=== PATIENT | female | born 1960 | race Caucasian/White ===

== ENCOUNTER → 2017-03-07 | Day surgery (SDC) | payer BC ==
[~2017-03-07] MED LIST: Bupivacaine/Epinephrine 0.25% 30 ML VIAL ONE; Dexamethasone 20 MG/5 ML VIAL ONE; Fentanyl 100 MCG/2 ML VIAL ONE; HYDROcodone/Acetaminophen 7.5/325 mg Tablet ONE; Ketorolac Tromethamine 30 MG/ML VIAL ONE; Levofloxacin 500 mg/D5W 100 ml Premix Bag ONE; Lidocaine 1% PF 5 ML VIAL ONE; Metoclopramide HCl 10 MG/2 ML VIAL ONE; Midazolam HCl 2 mg/2 ml Vial ONE; Ondansetron HCl/PF 4 MG/2 ML Vial ONE; Propofol 200 MG/20 ML VIAL ONE; diphenhydrAMINE 50 MG/ML VIAL ONE
--- NOTE | 2017-03-07 14:42 | OP ---
PREOPERATIVE DIAGNOSIS: Incarcerated right inguinal hernia. SURGEON: Edmund Thomas M.D. PROCEDURE PERFORMED: Right inguinal hernia repair with mesh. INDICATIONS: This is a 56-year-old female who over the last 2 days has had a very painful right ingu inal hernia that difficult to reduce. FINDINGS: Incarcerated right inguinal hernia containing fat is indirect in nature. DESCRIPTION OF PROCEDURE: After informed consent was obtained, the patient was taken to the operatin g room and given general endotracheal anesthesia, she was placed in the supine position. Her groin a maira was prepped and draped in the usual fashion. Local anesthesia infiltrated subcutaneously and shiva p. A transverse right inguinal incision was performed. The subcu divided sharply. The subcu divide d utilizing electrocautery. The fascia of the external oblique was exposed. Local anesthesia infilt rated in the subcu and then deep under the fascia. The fascia was incised in direction of its fibers through the external ring. The round ligament was isolated and divided between clamps and tied with 3-0 Vicryl suture. The hernia was exposed, dissected circumferentially and reduced. Reduction was maintained with a PHS hernia system. The posterior layer was placed in the preperitoneal space. Ant erior, it was laid out. It was sutured to the pubic tubercle medially, tucked under the external obl ique fascia laterally. Hemostasis was assured. The external oblique fascia closed with a running 3- 0 Vicryl. Rasta's closed with interrupted 3-0 Vicryl and skin closed with a running subcuticular 4- 0 Vicryl. Dermabond applied. The patient tolerated the procedure well and transferred to recovery i n good condition. Sponge and needle count verified correct x2.
== END ==
LOC: ER/OP 07:18
PROVIDERS: ATTEND Surgery
PROC: 0YU50JZ Supplement Right Inguinal Region with Synthetic Substitute, Open Approach (ICD-10-PCS; principal; 2017-03-07)
DX: K40.30 Unilateral inguinal hernia, with obstruction, without gangrene, not specified as recurrent (principal); Z88.0 Allergy status to penicillin; Z88.1 Allergy status to other antibiotic agents; Z79.899 Other long term (current) drug therapy; Z98.890 Other specified postprocedural states; Z90.89 Acquired absence of other organs; Z90.710 Acquired absence of both cervix and uterus; Z90.721 Acquired absence of ovaries, unilateral; Z98.51 Tubal ligation status
CPT/HCPCS: C1781; J1100; J1200; J1885; J1956; J2001; J2250; J2405; J2704; J2765; J3010

== ENCOUNTER 2017-08-05 08:15 | Outpatient (CLI) | payer BC ==
--- NOTE | 2017-08-05 11:24 | MRI ---
MRI BRAIN WITH AND WITHOUT CONTRAST: INDICATIONS: Headache. The patient also gives a history of imbalance and dizziness. TECHNIQUE: Multiplanar, multisequential imaging of the brain obtained pre and post IV Gadolinium. Internal zahraa tory canal protocol was followed with postcontrast images obtained with the administration of 15 mL o f MultiHance IV. FINDINGS: The ventricles have normal size and position. No evidence of restricted diffusion. No white mater a bnormality. No mass or edema. Images through the internal auditory canals show normal appearing VII and VIII cranial nerves. There is no evidence of acoustic Schwannoma. No other cerebellar pontine angle mass lesion identified. N o abnormal enhancement. The intracranial internal carotid arteries, the proximal cerebral arteries, and the basilar arteries show flow voids. The paranasal sinuses and mastoids appear clear. IMPRESSION: Unremarkable MRI brain and internal auditory canals. POS: MALDONADO
== END 2017-08-05 08:16 | disposition home or self-care (01) ==
LOC: SCSMRI 08:15
PROVIDERS: ATTEND Psychiatry & Neurology Neurology
DX: R51 Headache (principal)
CPT/HCPCS: 70553

== ENCOUNTER 2018-01-25 12:01 | Outpatient (CLI) | payer BC | END 2018-01-25 12:02 | disposition home or self-care (01) | LOC: BICMAMMO 12:01 | PROVIDERS: ATTEND Obstetrics & Gynecology | DX: Z12.31 Encounter for screening mammogram for malignant neoplasm of breast (principal); Z80.3 Family history of malignant neoplasm of breast | CPT/HCPCS: 77063; 77067 ==

== ENCOUNTER 2018-04-29 16:41 | Emergency (ER) | payer BC ==
[2018-04-29] MEDS ORDERED: Fluorescein Opthalmic Strip ONE (17:10)
[2018-04-29] MEDS ORDERED: Proparacaine 0.5% Opth 15 ML BOT ONE (17:10)
== END 2018-04-29 17:32 | disposition home or self-care (01) ==
LOC: SCSER 16:41
DX: S05.01XA Injury of conjunctiva and corneal abrasion without foreign body, right eye, initial encounter (principal); I10 Essential (primary) hypertension; X58.XXXA Exposure to other specified factors, initial encounter
CPT/HCPCS: 99283

== ENCOUNTER → 2018-09-08 | Day surgery (SDC) | payer BC ==
[2018-09-07 13:50] VITALS: BMI 23.3
[~2018-09-08] MED LIST changes: -Bupivacaine/Epinephrine 0.25% 30 ML VIAL ONE; -Dexamethasone 20 MG/5 ML VIAL ONE; -Fentanyl 100 MCG/2 ML VIAL ONE; -HYDROcodone/Acetaminophen 7.5/325 mg Tablet ONE; -Ketorolac Tromethamine 30 MG/ML VIAL ONE; -Levofloxacin 500 mg/D5W 100 ml Premix Bag ONE; -Lidocaine 1% PF 5 ML VIAL ONE; -Metoclopramide HCl 10 MG/2 ML VIAL ONE; -Midazolam HCl 2 mg/2 ml Vial ONE; -Ondansetron HCl/PF 4 MG/2 ML Vial ONE; +PROPOFOL 20 ML ONE; +PROPOFOL 200 MG/20 ML VIAL ONE; -Propofol 200 MG/20 ML VIAL ONE; -diphenhydrAMINE 50 MG/ML VIAL ONE
[2018-09-08 11:30] LABS: #Lymphocytes 1.5 thou/uL (1.20-3.40); #Monocytes 0.2 thou/uL (0.11-0.59); #Neutrophils 1.3 thou/uL (1.40-6.50); %Basophils 0.3 % (0.0-1.0); %Eosinophils 0.9 % (0.0-10.0); %Lymphocytes 49.8 % (21.0-51.0); %Monocytes 7.3 % (0.0-10.0); %Neutrophils 41.7 % (42.0-75.0); Hemoglobin 14.3 g/dL (12.0-16.0); Mean Corpuscular HGB CONC 33.4 g/dL (32.0-36.0); Mean Corpuscular Hemoglobin 32.3 pg (27.0-31.0); Mean Corpuscular Volume 96.6 fL (78.0-98.0); Mean Platelet Volume 7.7 fL (7.4-10.4); Platelet Count 131 thou/uL (130-400); RBC Distribution Width 12.1 % (11.5-14.5); Red Blood Cell (RBC) Count 4.44 mill/uL (4.20-5.40); White Blood Cell (WBC) Count 3.1 thou/uL (4.8-10.8)
[2018-09-08 11:40] LABS: Anion Gap 11 mmol/L (10-20); BUN (Urea Nitrogen) 14 mg/dL (9.8-20.1); Calc. Creatinine Clearance 80 mL/min (70-130); Calcium 9.9 mg/dL (7.8-10.44); Carbon Dioxide 29 mmol/L (22-29); Chloride 103 mmol/L (98-107); Estimated GFR-MDRD 74; Glucose 89 mg/dL (70-105); INR-International Normal Ratio 1.1; PTT 34.2 SEC (22.9-36.1); Potassium 4.2 mmol/L (3.5-5.1); Prothrombin Time 14.4 SEC (12.0-14.7); Sodium 139 mmol/L (136-145)
--- NOTE | 2018-09-09 09:13 | ECHO ---
CARDIOLOGY PROCEDURE NOTE: Date: 09/08/18 PROCEDURE: Transesophageal echocardiogram. REASON FOR PROCEDURE: Ms. Dominguez is a pleasant 58-year-old woman with history of atrial fibrillation and history of strok e. She underwent Watchman device placement and additional left atrial ablation on 08/03/18. She is he re for 6 weeks post placement ADITYA. PROCEDURE IN DETAIL: The patient received propofol by anesthesia specialist. After adequate level of anesthesia achieved, the standard transesophageal echocardiogram probe was passed into the esophagus without difficulty. T he patient tolerated the procedure well. No complications noted. RESULTS: Left atrium is normal in size, about 3.8 cm in horizontal diameter. Left atrial appendage is well vis ualized with an appropriately seated Watchman device in place. The Watchman device has a small leak n oted adjacent to the pulmonary vein. There is possibly a second leak that cannot be ruled out, more o n the annular side. The leaks are very small, about 1 mm in diameter. Partial echo lucency is still n oted behind the Watchman device in the left atrial appendage, suggestive of partial thrombosis only a nd possible flow behind the device. Mitral valve has mild regurgitation. Left ventricular systolic function is normal. Normal LV size see n. No pericardial effusion noted. Interatrial septum with trivial transseptal puncture, residual flow seen. No ventricular septal defect seen. Right-sided chambers normal in size. No significant tricusp id regurgitation. No pulmonic regurgitation or aortic regurgitation seen. No valvular stenosis identi fied. The visualized portions of the ascending and descending aorta are without aneurysm, dissection, or atheroma. CONCLUSIONS: 1. Adequately seated Watchman device with trivial, 1 mm, leak still identified, possibly 2 separate locations, adjacent to the device, one by the annular and one by the pulmonary venous area. 2. Partial thrombosis behind the Watchman device is observed. 3. Normal chamber sizes. 4. Trivial left to right flow through the previous transseptal puncture site. 5. No significant valve abnormality, except for mild mitral regurgitation. 6. Normal left ventricular systolic function is seen. PLAN: Continue anticoagulation for 3 months post ablation and possibly consider ADITYA in about 2 months. Will send recordings to Dr. Goncalves to review.
== END ==
LOC: CCL 09:37
PROVIDERS: ATTEND Internal Medicine Cardiovascular Disease
PROC: B245ZZ4 Ultrasonography of Left Heart, Transesophageal (ICD-10-PCS; principal; 2018-09-08)
DX: I48.91 Unspecified atrial fibrillation (principal); I05.9 Rheumatic mitral valve disease, unspecified; Z86.73 Personal history of transient ischemic attack (TIA), and cerebral infarction without residual deficits
CPT/HCPCS: 80048; 85025; 85610; 85730; 93005; 93010; 93312; J2704

== ENCOUNTER 2018-10-26 06:30 | Inpatient (IN) | payer BC ==
[2018-10-26 07:06] LABS: #Basophils 0.1 thou/uL (0.0-0.2); #Lymphocytes 1.4 thou/uL (1.20-3.40); #Monocytes 0.7 thou/uL (0.11-0.59); #Neutrophils 5.6 thou/uL (1.40-6.50); %Basophils 0.8 % (0.0-1.0); %Eosinophils 0.2 % (0.0-10.0); %Lymphocytes 17.8 % (21.0-51.0); %Monocytes 9.2 % (0.0-10.0); Mean Corpuscular HGB CONC 32.8 g/dL (32.0-36.0); Mean Corpuscular Hemoglobin 31.4 pg (27.0-31.0); Mean Corpuscular Volume 95.9 fL (78.0-98.0); Mean Platelet Volume 8.6 fL (7.4-10.4); Platelet Count 151 thou/uL (130-400); RBC Distribution Width 13.2 % (11.5-14.5); Red Blood Cell (RBC) Count 4.76 mill/uL (4.20-5.40); White Blood Cell (WBC) Count 7.7 thou/uL (4.8-10.8)
[2018-10-26] MEDS ORDERED: Ondansetron PF 4 MG/2 ML Vial ONE ×3 (07:08→08:56)
[2018-10-26] MEDS ORDERED: Pantoprazole 40 MG VIAL ONE (07:08)
[2018-10-26 07:21] LABS: ALT (SGPT) 36 U/L (8-55); AST (SGOT) 30 U/L (5-34); Albumin 3.7 g/dL (3.5-5.0); Alkaline Phosphatase 73 U/L (40-150); Anion Gap 14 mmol/L (10-20); BUN (Urea Nitrogen) 9 mg/dL (9.8-20.1); Bilirubin, Total 0.9 mg/dL (0.2-1.2); Calc. Creatinine Clearance 0 mL/min (70-130); Calcium 9.2 mg/dL (7.8-10.44); Carbon Dioxide 26 mmol/L (22-29); Chloride 101 mmol/L (98-107); Estimated GFR-MDRD 86; Globulin 2.8 g/dL (2.4-3.5); Glucose 116 mg/dL (70-105); Potassium 4.2 mmol/L (3.5-5.1); Protein, Total 6.5 g/dL (6.0-8.3); Sodium 137 mmol/L (136-145)
[2018-10-26 07:35] LABS: Lipase Less than 4 U/L (8-78)
--- NOTE | 2018-10-26 08:28 | CT ---
CT abdomen and pelvis: 10/26/2018 COMPARISON: 06/30/2017 HISTORY: Abdominal pain, left upper quadrant pain with nausea, vomiting, and diarrhea TECHNIQUE: Axial CT imaging at 5 mm intervals from lung bases through pubic symphysis with IV contras t. Coronal reformatted imaging obtained. FINDINGS: Imaged lung bases demonstrate no acute findings. There is a partially imaged cystic lesion abutting the lateral aspect of the right atrium measuring 2.8 cm in AP dimension, enlarged when compared to the prior examination performed 06/26/2016, at which time it measured 2.2 cm in AP dimensi on. Its Hounsfield units are consistent with a simple cystic nonspecific lesion. No free intraperitoneal air is noted. There is small volume abnormal free fluid in Morison's pouch. There is no focal liver lesion identifi ed. The gallbladder, spleen, pancreas, and adrenal glands demonstrate no acute findings. Nonobstructing stone noted in lower pole of right kidney measuring 1 cm in craniocaudal dimension. Th ere are 2 nonobstructing punctate lower pole left renal calculi noted measuring up to 4-5 mm. There is small volume free fluid in the pelvic cul-de-sac. The uterus appears surgically absent. There is marked wall thickening involving the colon from the level of the cecum through the level of the proximal transverse colon with prominent pericolonic fat stranding and free fluid in the right paracolic gutter region. The appendix is dilated and fluid-filled, measuring 1.6 cm in transverse dim ension. There is mucosal edema at the base of the appendix and there is curvilinear increased density at the distal tip of the appendix which may signify trapped oral contrast from a prior examin ation, and or calcification. No enlarged retroperitoneal, mesenteric, or pelvic lymph nodes. No acute osseous abnormality. Multilevel lumbar spine facet hypertrophy. Multilevel lumbar spine dege nerative change, most prominent at L4-5. No worrisome lytic or blastic bone lesions. IMPRESSION: Marked inflammatory change involving the colon from the level of the cecum through the pr oximal transverse colon. Findings are consistent with nonspecific colitis. The appendix is abnormal as well. Acute appendicitis is a possibility but this appearance could also be on the basis of append iceal mucocele or trapped fluid within the appendix secondary to mucosal edema associated with above-described marked colitis. No evidence for abscess. Recommend surgical consultation and close follow-up. Dr. Waggoner made aware at 8:20 AM 10/26/2018.
[2018-10-26] MEDS ORDERED: Morphine 4 MG/ML VIAL ONE (08:41)
[2018-10-26 08:46] LABS: Bilirubin Negative (Negative); Blood, Urine Trace (Negative); Clarity Clear (Clear); Glucose, Urine (Dipstick) Negative (Negative); Leukocyte Negative (Negative); Nitrite Negative (Negative); Protein, Urine (Dipstick) Negative (Neg-Trace); Urobilinogen 0.2 mg/dL (Less than 2)
[2018-10-26 08:48] LABS: Bacteria/HPF None Seen HPF (None Seen); Epithelial Cast None Seen LPF (None Seen); RBC/HPF 0-3 HPF (0-3); Squamous Epithelial 0-3 HPF (0-3); WBC/HPF 0-3 HPF (0-3)
[2018-10-26] MEDS ORDERED: Piperacillin/Tazobactam 4.5 GM VIAL ONE (09:14)
[2018-10-26 09:26] LABS: CRP (Inflammatory) 7.9 mg/dL (= or < 0.5); Magnesium 1.6 mg/dL (1.6-2.6)
[2018-10-26] MEDS ORDERED: Fentanyl 100 MCG/2 ML VIAL ONE (11:50)
[2018-10-26 12:23] VITALS: BMI 25.2
[2018-10-26] MEDS ORDERED: Ondansetron ODT 4 MG TAB PO PRN ×2 (12:26→14:01)
[2018-10-26] MEDS ORDERED: Ondansetron PF 4 MG/2 ML Vial IVP PRN (12:26)
[2018-10-26] MEDS ORDERED: Acetaminophen 325 MG TAB PO PRN (12:26)
[2018-10-26] MEDS ORDERED: Sodium Chloride 0.9% 1,000 ML IV SCH (12:30)
[2018-10-26] MEDS ORDERED: Iopamidol 370 76% 100 ML VIAL ONE (13:51)
[2018-10-26] MEDS ORDERED: Calcium Carbonate 500 MG ChewTAB PO PRN (13:58)
[2018-10-26] MEDS ORDERED: Baclofen 10 MG TAB PO PRN (14:01)
[2018-10-26] MEDS ORDERED: Gabapentin 300 MG CAP PO PRN (14:04)
[2018-10-26] MEDS: Piperacillin/Tazobactam 3.375 GM in Sodium Chloride 0.9% 100 ML IVPB SCH ×2 (15:09→21:20)
[2018-10-26] MEDS: Sodium Chloride 0.9% 1,000 ML IV SCH ×2 (15:10→23:48)
[2018-10-26] MEDS: Morphine 4 MG/ML VIAL SLOW IVP PRN ×2 (16:29→21:23)
[2018-10-26] MEDS ORDERED: Magnesium Sulfate 2 GM in Sodium Chloride 0.9% 100 ML IVPB SCH (16:30)
[2018-10-26] MEDS ORDERED: Magnesium 2 GM/50 ML 2 GM in Premix Bag 1 BAG IVPB SCH (16:45)
--- NOTE | 2018-10-26 16:58 | HP ---
PRIMARY CARE PHYSICIAN: Dr. Kaylee Sofia. PRIMARY ACCOUNTS RECEIVABLE CLERK: Dr. Sommer. PRIMARY BRAIN WAVE TECHNICIAN: Dr. Lima. CHIEF COMPLAINT: Abdominal pain. HISTORY OF PRESENT ILLNESS: The patient is a 58-year-old female with paroxysmal atrial fibrillation, status post Watchman device, on aspirin and Plavix, and GERD, presented to the emergency room with abdominal discomfort. Four days ago, the patient was in [place], visiting her daughter. She ate salmon followed by beef Quesadilla with duck meat. Next day, she started having abdominal pain along with nausea and diarrhea. Her symptoms got progressively worse. She had a fever of 99.1. She felt generally weak and fatigued. She lost her appetite. No vomiting reported. Abdominal pain was initially generalized, however later on, localized to the right lower quadrant. She denies any jaundice. No other family members had similar symptoms. The diarrhea was loose, watery. No hematemesis, melena, or hematochezia reported. No similar symptoms in the past. PAST MEDICAL HISTORY: 1. Paroxysmal atrial fibrillation. 2. Vestibular and basilar migraine. 3. Hypertension. 4. Hypothyroidism. 5. Gastroesophageal reflux disease. 6. Depression. PAST SURGICAL HISTORY: 1. Colonoscopy, eight years ago. 2. EGD, few years ago. 3. Left shoulder surgery. 4. Ablation for atrial fibrillation. 5. Watchman device. 6. Hysterectomy. 7. Bilateral bunionectomy. ALLERGIES: THE PATIENT IS ALLERGIC TO CEPHALOSPORINS AND LATEX. CURRENT HOME MEDICATION: 1. Xanax 0.5 mg b.i.d. 2. Amitriptyline 25 mg nightly. 3. Aspirin 81 mg daily. 4. Lipitor 20 mg daily. 5. Baclofen 10 mg daily. 6. Bupropion 150 mg daily. 7. Vitamin D3 5000 units daily. 8. Plavix 75 mg daily. 9. Lexapro 20 mg daily. 10. Gabapentin 600 mg b.i.d. 11. Levothyroxine 75 mcg as directed. 12. Toprol-XL 25 mg daily. 13. Protonix 40 mg daily. Please note that the patient has not taken any of her medications over the last 2 days. SOCIAL HISTORY: The patient is a nurse. She denies smoking or drug use. She drinks alcohol socially. FAMILY HISTORY: Father with pancreatic cancer. Mother with renal and bladder cancer. REVIEW OF SYSTEMS: All other review of systems was reviewed and were found negative. PHYSICAL EXAMINATION: VITAL SIGNS: Temperature 98.2, respirations are 18, pulse rate of 114, and blood pressure of 117/84 with O2 saturation 99% on room air. GENERAL: A 58-year-old female in no significant distress while resting. Abdominal pain improved after IV morphine. HEENT: Head, atraumatic and normocephalic. Sclerae anicteric. Dry mucous membrane. No oral lesion. NECK: Supple. No JVD appreciated. No carotid bruit. LUNGS: Clear to auscultation bilaterally. No wheezing, rales, or rhonchi. HEART: S1 and S2 present. Regular rate and rhythm. No heaves or pulsation ABDOMEN: Soft. There is tenderness in the right upper quadrant. Hyperactive bowel sounds. No guarding or rigidity. No costovertebral angle tenderness. EXTREMITIES: No edema or calf tenderness. NEUROLOGIC: Grossly nonfocal. Moves all 4 extremities. PSYCHIATRY: Alert, awake, and oriented x3. SKIN: Warm and dry. LYMPH NODE: No palpable lymph nodes in the neck. PERIPHERAL VASCULAR: Radial pulses palpable bilaterally. MUSCULOSKELETAL: No joint swelling tenderness. Medication administered in the emergency room; fentanyl 50 mcg one time, IV fluids, Zosyn, Zofran, and intramuscular Bentyl. LABORATORY FINDINGS: WBC 7.7, hemoglobin 15, hematocrit 45.6, and platelets are 151. Chemistry showed sodium 137, potassium 4.2, chloride 101, bicarb 26, BUN 9 , and creatinine 0.7. CRP was 7.6. Magnesium 1.6. Lactic acid 1.0. Urinalysis was negative for WBC bacteria. It showed ketones. CT scan of the abdomen and pelvis by my review showed marked inflammatory change involving the colon from the level of cecum through the proximal transverse colon. There was swelling of the appendix as well. EKG by my review showed sinus rhythm with nonspecific ST-T wave changes. IMPRESSION: 1. Acute colitis. Possibilities include infectious versus inflammatory. 2. Paroxysmal atrial fibrillation, status post Watchman device. Thromboembolic colitis is also a possibility. 3. Hypomagnesemia. 4. Chronic kidney disease, stage 2. 5. Dehydration. 6. Hypertension. 7. Chronic migraines. 8. Hypothyroidism. 9. Gastroesophageal reflux disease. PLAN: The patient will be monitored on the medical floor. We will keep her on clear liquid diet. IV hydration. IV Zosyn. We will get stool workup including Clostridium difficile. We will consult Gastroenterology as well as General Surgery, Dr. Thomas due to swelling of the appendix. We will replace magnesium. We will recheck labs in a.m. We will resume aspirin and Plavix. Add probiotics. IV morphine for pain control. Plan of care was discussed with the patient in detail. She stated understanding. Job ID: [id number] MTDD
[2018-10-26] MEDS: Acetaminophen 325 MG TAB PO PRN (17:14)
--- NOTE | 2018-10-26 18:27 | CON ---
DATE OF CONSULTATION: CHIEF COMPLAINT: Right-sided abdominal pain, nausea, and vomiting. HISTORY OF PRESENT ILLNESS: The patient is a 58-year-old female, who says she started having diarrhea and abdominal cramps on Thursday. It progressed until yesterday when she became much more nauseated and then she stopped having loose stools. She is still passing flatus. PAST MEDICAL HISTORY: Significant for migraine headaches, chronic back pain. She has arrhythmias, atrial fibrillation, hypothyroidism, hypertension, and gastroesophageal reflux. PAST SURGICAL HISTORY: She has had a colonoscopy, EGD, and left shoulder scope. She had an ablation for AFib, hysterectomy, and inguinal hernia repair. MEDICATIONS: Include; 1. Metoprolol. 2. Synthroid. 3. Lexapro. 4. Wellbutrin. 5. Baclofen. 6. Gabapentin. 7. Celebrex. 8. Amitriptyline. 9. Vitamin D3. 10. Phenergan. 11. Tramadol. ALLERGIES: SHE HAS ALLERGIES TO CEPHALOSPORINS, LATEX, AND PENICILLIN. SOCIAL HISTORY: She is . She is a registered nurse. No tobacco. Rare alcohol. PHYSICAL EXAMINATION: VITAL SIGNS: Temperature 98, pulse 97, and blood pressure 109/76. GENERAL: Well-developed, well-nourished female, lying still, in minimal distress. HEENT: Unremarkable. LUNGS: Clear. HEART: Regular rate and rhythm. ABDOMEN: Soft and nondistended. She is very tender along the right abdomen. EXTREMITIES: Unremarkable. LABORATORY DATA: White count is 7.7, H and H of 15 and 45, and platelet count 151. Her electrolytes show elevated C-reactive protein at 7.9. Glucose elevated at 116. Urinalysis negative, clear. IMAGING DATA: She had a CT scan of the abdomen and pelvis showing significant inflammation of the right colon with a dilated appendix. ASSESSMENT: Colitis. PLAN: Continue IV antibiotics. GI consultation. Job ID: [id number]
[2018-10-26] MEDS: Amitriptyline HCl 25 MG TAB PO SCH (20:22)
[2018-10-26] MEDS: ALPRAZolam 0.5 MG TAB PO SCH (20:22)
[2018-10-26] MEDS: Aspirin 81 mg Enteric Coated Tablet PO SCH (20:22)
[2018-10-26] MEDS: Dicyclomine 10 MG CAP PO PRN (20:23)
[2018-10-26] MEDS: Atorvastatin Calcium 20 MG TAB PO SCH (20:23)
[2018-10-26] MEDS: Clopidogrel Bisulfate 75 MG TAB PO SCH (20:23)
--- NOTE | 2018-10-26 23:18 | CON ---
DATE OF CONSULTATION: 10/26/2018 CHIEF COMPLAINT: Abdominal pain. HISTORY OF PRESENT ILLNESS: Ms. Dominguez is a 58-year-old woman who developed abdominal bloating and discomfort and cramping on Thursday, 3 days ago. She had increased numbers of formed soft stool 5 or 6 times at day and during the night and also into the next day she had 5 or 6 soft formed stools and increasing abdominal, right-sided diffuse cramping and aching pain. She felt nauseated throughout this, but has had no vomiting. She had no blood in the stool. She had one liquidy stool yesterday morning and then has had no bowel movement since. She has had very little oral intake over this time. Her last colonoscopy was around 8 years ago and was normal per report. She had multiple gastric polyps removed a couple of years ago including one larger submucosal polyp removed from the antrum which came out to be a benign polyp. She is followed with Dr. Lima as an outpatient previously. She was diagnosed with atrial fibrillation and ultimately underwent a Watchman procedure in July of this year. She has been on Plavix since then. She has had just developed neurologic condition over the last couple of years with ataxia and loss of balance. She also has had it affecting her speech to some degree and sometimes trouble finding words. She has seen 3 neurologists since then without any obvious diagnosis. However, due to the neurologic disability, she has been unable to work and has been on disability. She worked as an RN prior to that. PAST MEDICAL HISTORY: Paroxysmal atrial fibrillation, history of migraine headaches, history of neurological disorder, this is yet to be diagnosed as stated above. Hypothyroidism, gastroesophageal reflux disease, depression. PAST SURGICAL HISTORY: Watchman procedure, atrial fibrillation ablation, shoulder surgery, hysterectomy, EGD in 2017, colonoscopy in 2011 around about. FAMILY HISTORY: Positive for pancreatic cancer in her father. 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 She has around one drink of alcohol per week. ALLERGIES: CEPHALOSPORIN, LATEX. MEDICATIONS: Prior to admission include; 1. Protonix 40 mg daily. 2. Toprol-XL. 3. Levothyroxine. 4. Gabapentin. 5. Lexapro. 6. Plavix. 7. Bupropion. 8. Baclofen. 9. Vitamin D. 10. Lipitor. 11. Aspirin. 12. Amitriptyline. 13. Xanax. REVIEW OF SYSTEMS: Negative x10 systems reviewed except as stated in the history of present illness. PHYSICAL EXAMINATION: VITAL SIGNS: Temperature maximum today was 101.5. Current temperature 99.8, pulse 97, blood pressure 99/68. GENERAL: She is in no acute distress. Alert and oriented x3. HEENT: Eyes have no scleral icterus. Oropharynx is clear without lesions. No cervical or supraclavicular lymphadenopathy. LUNGS: Clear to auscultation bilaterally. HEART: Regular rate and rhythm without murmur. ABDOMEN: Soft, nontender in the left lower abdomen, but significantly tender in the right lower abdomen and right upper abdomen. Her bowel sounds are active. EXTREMITIES: No lower extremity edema. NEUROLOGIC: Cranial nerves are grossly intact. LABORATORY DATA: White blood cell count 7.7, hemoglobin 15.0, platelets 151. Creatinine 0.7, bilirubin 0.9, AST 30, ALT 36, alkaline phosphatase 73, albumin 3.7, lipase 4, CRP 7.9. IMAGING: CT scan of the abdomen and pelvis shows thickening and inflammatory change of the cecum and ascending colon all the way through to the level of the proximal transverse colon with prominent pericolonic fat stranding. IMPRESSION: Ischemic colitis. It is a vascular distribution of the superior mesenteric artery of the right colon all the way to the proximal transverse colon with thickening and inflammatory changes. She has had significant pain and did have increased formed stools, but no significant diarrhea and she has had no hematochezia. Stool studies have been ordered, however, she has had no bowel movement since yesterday morning. The SMA distribution is less common than with the left colon. She did not take any of the acute migraine headache medication that would be well known to be associated with ischemic colitis. Most likely, she just had a relative decrease in her blood flow that could have been related to dehydration or her blood pressure medications or even arrhythmia. She does not have obvious evidence of mesenteric full-thickness ischemia and therefore at this point, treatment is supportive with IV fluids and we will cover with antibiotics. RECOMMENDATIONS: 1. IV fluids. 2. We can try low volumes of clear liquid diet. However, I would like to start seeing stool output again prior to significantly increasing her fluid intake orally. 3. I will review the CT with Radiology to make sure there is no evidence of mesenteric vein thrombosis. 4. Continue Zosyn. Job ID: [id number]
[2018-10-27] MEDS: Morphine 4 MG/ML VIAL SLOW IVP PRN ×4 (02:10→21:15)
[2018-10-27] MEDS: Piperacillin/Tazobactam 3.375 GM in Sodium Chloride 0.9% 100 ML IVPB SCH ×4 (04:16→21:32)
[2018-10-27] MEDS: Acetaminophen 325 MG TAB PO PRN (06:03)
[2018-10-27] MEDS: Levothyroxine Sodium 75 MCG TAB PO SCH (06:03)
[2018-10-27] MEDS: Dicyclomine 10 MG CAP PO PRN ×3 (06:03→19:03)
[2018-10-27] MEDS: Sodium Chloride 0.9% 1,000 ML IV SCH (06:08)
[2018-10-27 07:08] LABS: #Eosinphils 0.1 thou/uL (0.0-0.7); #Lymphocytes 1.5 thou/uL (1.20-3.40); #Monocytes 0.6 thou/uL (0.11-0.59); #Neutrophils 4.8 thou/uL (1.40-6.50); %Basophils 0.2 % (0.0-1.0); %Eosinophils 1.5 % (0.0-10.0); %Lymphocytes 21.5 % (21.0-51.0); %Monocytes 8.2 % (0.0-10.0); %Neutrophils 68.7 % (42.0-75.0); Hemoglobin 12.5 g/dL (12.0-16.0); Mean Corpuscular Hemoglobin 31.6 pg (27.0-31.0); Mean Corpuscular Volume 98.8 fL (78.0-98.0); Mean Platelet Volume 8.1 fL (7.4-10.4); Platelet Count 139 thou/uL (130-400); RBC Distribution Width 12.6 % (11.5-14.5); Red Blood Cell (RBC) Count 3.95 mill/uL (4.20-5.40); White Blood Cell (WBC) Count 6.9 thou/uL (4.8-10.8)
[2018-10-27 07:16] LABS: Calcium 8.1 mg/dL (7.8-10.44); Chloride 105 mmol/L (98-107); Potassium 3.5 mmol/L (3.5-5.1); Sodium 134 mmol/L (136-145)
[2018-10-27 07:36] LABS: ALT (SGPT) 24 U/L (8-55); AST (SGOT) 29 U/L (5-34); Albumin 3.1 g/dL (3.5-5.0); Alkaline Phosphatase 92 U/L (40-150); Anion Gap 11 mmol/L (10-20); BUN (Urea Nitrogen) 7 mg/dL (9.8-20.1); Bilirubin, Total 0.8 mg/dL (0.2-1.2); Calc. Creatinine Clearance 111 mL/min (70-130); Carbon Dioxide 21 mmol/L (22-29); Estimated GFR-MDRD Greater than 90; Globulin 2.3 g/dL (2.4-3.5); Glucose 89 mg/dL (70-105); Protein, Total 5.4 g/dL (6.0-8.3)
[2018-10-27] MEDS: Bupropion 150 MG XL TAB PO SCH (08:02)
[2018-10-27] MEDS: Saccharomyces boulardii 250 MG CAP PO SCH (08:02)
[2018-10-27] MEDS: ALPRAZolam 0.5 MG TAB PO SCH ×2 (08:03→20:29)
[2018-10-27] MEDS: Escitalopram Oxalate 20 mg Tablet PO SCH (08:03)
[2018-10-27 08:23] LABS: Magnesium 3.9 mg/dL (1.6-2.6)
--- NOTE | 2018-10-27 10:34 | PRG ---
DATE OF SERVICE: 10/27/2018 SUBJECTIVE: A 58-year-old female with paroxysmal atrial fibrillation, status post Watchman device, on aspirin and Plavix, presented to the hospital with abdominal pain along with nausea and diarrhea. Workup was consistent with colitis along with significant swelling of the appendix. She was evaluated by GI and Surgery yesterday. Overnight, the patient had several diarrhea with fresh blood. She continues to have the same abdominal pain without any worsening. She is tolerating clear liquid diet. No hematemesis reported. REVIEW OF SYSTEMS: No chest pain, palpitations, or focal neurologic deficit reported. CURRENT MEDICATIONS: Reviewed. The patient is on all of her home medications including IV Zosyn and IV fluids. OBJECTIVE: VITAL SIGNS: Temperature 98.5 with T-max of 101.5, pulse rate of 83 , blood pressure of 91/59 with O2 saturation of 95% on room air, respirations of 16. Intake of 2411, output unavailable. GENERAL: A 58-year-old female, in no apparent distress. LUNGS: Clear to auscultation bilaterally. No wheezing, rales, or rhonchi. HEART: S1, S2 present. Regular rate and rhythm. No rubs or gallops. ABDOMEN: Soft. There is tenderness over the right lower quadrant as well as in the right flank. No rebound or guarding. No costovertebral angle tenderness. EXTREMITIES: No edema or calf tenderness. NEUROLOGIC: Grossly nonfocal. PSYCHIATRIC: Alert, awake, and oriented x3. Normal affect. LABORATORY FINDINGS: WBC 6.9 with hemoglobin 12.5, hematocrit 39.1, and platelets of 139. Chemistry showed sodium 134, potassium 3.5, chloride 105, bicarb 21, BUN 7, and creatinine 0.62. CRP 7.9. CT scan of the abdomen and pelvis was consistent with colitis involving the proximal transverse colon up to the cecum. Rapid parasite screen was negative. Stool for Campylobacter is pending at this time. Shiga toxin-2 was positive. Stool for Clostridium difficile was negative. Blood culture negative. IMPRESSION: 1. Acute ischemic colitis. 2. Significant swelling of the colon including the appendix. 3. Paroxysmal atrial fibrillation, status post Watchman device. 4. Hematochezia last night. 5. Hypomagnesemia, replaced. 6. Chronic kidney disease, stage 2. 7. Dehydration. 8. Hypertension. 9. Chronic migraines. 10. Hypothyroidism. 11. Gastroesophageal reflux disease. 12. Hyponatremia. 13. Elevated inflammatory markers. PLAN: IV Zosyn will be continued. Due to hematochezia last night, we will hold Plavix. Continue low-dose aspirin with close monitoring. We will recheck hemoglobin later today. Continue all other home medications including levothyroxine, metoprolol, and Protonix. Continue probiotics. General Surgery and Gastroenterology input appreciated. Recheck labs in a.m. IV morphine for pain control. We will change the IV fluid to NS with 20 of K at 125 an hour since potassium today is 3.5. Plan was discussed with the patient. She stated understanding. Job ID: [id number] MTDD
[2018-10-27] MEDS: NS 0.9% w/ 20 MEQ KCL 1,000 ML/1,000 ML BAG IV SCH ×3 (12:01→23:46)
--- NOTE | 2018-10-27 12:57 | PRG ---
DATE OF SERVICE: 10/27/2018 SUBJECTIVE: The patient is feeling a little bit better today. Less pain. OBJECTIVE: VITAL SIGNS: Temperature is 98.5, pulse 83, blood pressure 91/59. GENERAL: She is up walking around. ABDOMEN: She has had a couple of bowel movements. LABORATORY DATA: Her white count 6.9, H and H of 12 and 39, platelet count 139. Her electrolytes show the sodium is 134, CO2 of 21, otherwise unremarkable. Her stool culture came back positive for E. coli. ASSESSMENT: Escherichia coli induced colitis. PLAN: Continue antibiotics. No surgery needed. Job ID: [id number]
[2018-10-27 14:24] LABS: Hemoglobin 12.2 g/dL (12.0-16.0)
--- NOTE | 2018-10-27 17:09 | PRG ---
DATE OF SERVICE: 10/27/2018 SUBJECTIVE: The patient still has significant abdominal pain, but overall less than yesterday. She did have 1 episode of bloody stool this morning. There is no nausea or vomiting. She is tolerating clear liquids. PHYSICAL EXAMINATION: VITAL SIGNS: Temperature is 97.9, blood pressure 94/61, pulse of 84. GENERAL: She is alert, conversant. No distress. HEENT: Anicteric sclerae. Oropharynx is dry. CV: Normal S1, S2. Regular rate and rhythm. CHEST: Breath sounds clear to auscultation. ABDOMEN: Mildly protuberant, but soft. No distention. No tympany. She has active bowel sounds. There is [id number] tenderness greater on the right than the left. No rebound or guarding. EXTREMITIES: No edema. LABORATORY DATA: Sodium 134, potassium 3.5, chloride 105, CO2 is 21, creatinine 0.62. Liver profile is normal. WBC is 6.9, hemoglobin is 12.2, hematocrit is 36.8, and platelet count of 139. ASSESSMENT: Clinical presentation of severe abdominal pain, bloody stools, and CT findings are characteristic of right-sided colitis. Thus far, there is no apparent complication or worsening of her condition. Episode of bloody stool is typical for ischemic colitis. I suspect she is recovering from the acute event. There is no fever or leukocytosis. RECOMMENDATIONS: 1. We will advance to full liquid. 2. Encourage frequent ambulation. 3. Can resume Plavix. 4. Anticipate discharge in 24 to 36 hours. Likely, the patient will not need to have any antibiotics on discharge. Job ID: [id number]
[2018-10-27] MEDS: Aspirin 81 mg Enteric Coated Tablet PO SCH (20:29)
[2018-10-27] MEDS: Atorvastatin Calcium 20 MG TAB PO SCH (20:29)
[2018-10-27] MEDS: Amitriptyline HCl 25 MG TAB PO SCH (20:29)
[2018-10-27] MEDS ORDERED: Loperamide HCl 2 MG CAP PO SCH (23:00)
[2018-10-28] MEDS: Piperacillin/Tazobactam 3.375 GM in Sodium Chloride 0.9% 100 ML IVPB SCH ×4 (03:18→22:04)
[2018-10-28 05:08] LABS: ALT (SGPT) 20 U/L (8-55); AST (SGOT) 24 U/L (5-34); Albumin 2.6 g/dL (3.5-5.0); Alkaline Phosphatase 89 U/L (40-150); Anion Gap 8 mmol/L (10-20); BUN (Urea Nitrogen) Less than 4 mg/dL (9.8-20.1); Bilirubin, Total 0.4 mg/dL (0.2-1.2); Calc. Creatinine Clearance 118 mL/min (70-130); Carbon Dioxide 24 mmol/L (22-29); Chloride 110 mmol/L (98-107); Estimated GFR-MDRD Greater than 90; Globulin 2.1 g/dL (2.4-3.5); Glucose 99 mg/dL (70-105); Potassium 3.8 mmol/L (3.5-5.1); Protein, Total 4.7 g/dL (6.0-8.3); Sodium 138 mmol/L (136-145)
[2018-10-28 05:37] LABS: #Eosinphils 0.1 thou/uL (0.0-0.7); #Lymphocytes 1.3 thou/uL (1.20-3.40); #Monocytes 0.4 thou/uL (0.11-0.59); #Neutrophils 2.8 thou/uL (1.40-6.50); %Basophils 0.7 % (0.0-1.0); %Eosinophils 1.3 % (0.0-10.0); %Lymphocytes 27.8 % (21.0-51.0); %Monocytes 8.9 % (0.0-10.0); %Neutrophils 61.3 % (42.0-75.0); Hemoglobin 10.4 g/dL (12.0-16.0); Mean Corpuscular HGB CONC 32.6 g/dL (32.0-36.0); Mean Corpuscular Hemoglobin 32.2 pg (27.0-31.0); Mean Corpuscular Volume 98.8 fL (78.0-98.0); Mean Platelet Volume 8.2 fL (7.4-10.4); Platelet Count 111 thou/uL (130-400); RBC Distribution Width 12.4 % (11.5-14.5); Red Blood Cell (RBC) Count 3.23 mill/uL (4.20-5.40); White Blood Cell (WBC) Count 4.6 thou/uL (4.8-10.8)
[2018-10-28] MEDS: Levothyroxine Sodium 50 MCG TAB PO SCH (06:25)
[2018-10-28] MEDS: Acetaminophen 325 MG TAB PO PRN (06:27)
[2018-10-28] MEDS: Escitalopram Oxalate 20 mg Tablet PO SCH (09:26)
[2018-10-28] MEDS: Saccharomyces boulardii 250 MG CAP PO SCH (09:26)
[2018-10-28] MEDS: ALPRAZolam 0.5 MG TAB PO SCH ×2 (09:26→20:08)
[2018-10-28] MEDS: NS 0.9% w/ 20 MEQ KCL 1,000 ML/1,000 ML BAG IV SCH ×3 (09:32→22:08)
--- NOTE | 2018-10-28 09:45 | PRG ---
DATE OF SERVICE: 10/28/2018 SUBJECTIVE: The patient says that she is still having quite a bit of abdominal pain. She had a couple of bloody stools. She had a low-grade fever, she reports, but has not been documented. OBJECTIVE: GENERAL: On examination, she looks weak. She is a little bit lethargic. VITAL SIGNS: Her temperature is 98.6, pulse 91, and blood pressure 93/58. ABDOMEN: Somewhat distended. She is tender along the right side. There are bowel sounds present. LABORATORY DATA: Her white count is 4.6, H and H 10 and 31, and platelet count 111. ASSESSMENT: Infectious colitis due to Escherichia coli. PLAN: Continue treatment per Gastroenterology. Job ID: [id number]
[2018-10-28] MEDS: Dicyclomine 10 MG CAP PO PRN ×2 (11:11→20:12)
[2018-10-28] MEDS: Bupropion 150 MG XL TAB PO SCH (11:11)
[2018-10-28] MEDS ORDERED: Sodium Chloride 0.9% 500 ML IV SCH (11:15)
[2018-10-28 11:25] LABS: Hemoglobin 11.8 g/dL (12.0-16.0)
[2018-10-28] MEDS: Morphine 4 MG/ML VIAL SLOW IVP PRN (12:56)
--- NOTE | 2018-10-28 14:34 | PRG ---
DATE OF SERVICE: 10/28/2018 SUBJECTIVE: The patient feels worse than yesterday. She is having more frequent loose stool; however, amount of blood appears to be less. She still has significant degree of abdominal pain. She did not tolerate full liquids. There is no current nausea or vomiting. PHYSICAL EXAMINATION: VITAL SIGNS: Temperature is 97.5, blood pressure is 102/63, pulse of 90. GENERAL: She is alert, appears sick, but in no severe distress. HEENT: Shows anicteric sclerae. Oropharynx is moist. CV: Shows normal S1 and S2. Regular rate and rhythm. CHEST: Shows a breath sound. ABDOMEN: Mildly distended with mild tympany. There is moderate tenderness more so on the right than the left. There is no rebound tenderness. There is no guarding. She does have bowel sound. EXTREMITIES: Show no edema. LABORATORY DATA: WBCs 4.6, hemoglobin 11.8, and platelet count of 111. Electrolytes within normal range. Creatinine is 0.58. C-reactive protein is 7.9, albumin is 2.6, and globulin is 2.1. Stools O and P, Shiga toxin, Campylobacter antigen, C. diff toxin, and culture all are negative. ASSESSMENT: Ischemic colitis involving right ascending colon. She does not appear toxic at this point despite feeling worse than yesterday. There is no fever or leukocytosis. Overall, clinically stable. RECOMMENDATION: 1. We will continue with IV Zosyn. 2. We will advance diet perhaps tomorrow when she feels better. In the meantime , continue supportive management. We will maintain low threshold to rescan as right-sided ischemic colitis can have more complications and worse prognosis than ischemic colitis involving watershed area of the transverse and left colon. 3. We will follow. Job ID: [id number] [facility]
[2018-10-28] MEDS: Amitriptyline HCl 25 MG TAB PO SCH (20:08)
[2018-10-28] MEDS: Clopidogrel Bisulfate 75 MG TAB PO SCH (20:09)
[2018-10-28] MEDS: Atorvastatin Calcium 20 MG TAB PO SCH (20:09)
[2018-10-28] MEDS: Loperamide HCl 2 MG CAP PO PRN ×2 (20:09→22:07)
[2018-10-28] MEDS: Aspirin 81 mg Enteric Coated Tablet PO SCH (20:09)
--- NOTE | 2018-10-28 22:54 | PDOC.PN ---
- Subjective Encounter Start Date: 10/28/18 Encounter Start Time: 18:00 Patient seen and examined for Colitis. Hematochezia improving. No fever. Abd pain improving. Nausea+. No new complaints. No overnight events - Objective Resuscitation Status - Order Detail: 10/26/18 13:58 Resuscitation Status Routine Resuscitation Status: FULL: Full Resuscitation MAR Reviewed: Yes Vital Signs & Weight: Vital Signs (12 hours) Temp Pulse Resp BP BP Pulse Ox 10/28/18 20:00 98.2 F 88 20 104/72 96 10/28/18 12:45 102/63 10/28/18 12:00 97.5 F L 16 95 Weight Admit Weight 156 lb 1 oz Weight 156 lb 1 oz I&O: 10/27/18 10/28/18 10/29/18 06:59 06:59 06:59 Intake Total 2411.5 2785 2620 Balance 2411.5 2785 2620 Result Diagrams: 10/29/18 05:32 10/29/18 05:32 Phys Exam - Physical Examination Constitutional: NAD Respiratory: no wheezing, no rhonchi Cardiovascular: RRR, no rub Gastrointestinal: soft, positive bowel sounds Rt sided tend, No rebound Dx/Plan - Plan DVT proph w/SCDs IMPRESSION: 1. Acute ischemic colitis. 2. Significant swelling of the colon including the appendix. 3. Paroxysmal atrial fibrillation, status post Watchman device. 4. Hematochezia last night. 5. Hypomagnesemia, replaced. 6. Chronic kidney disease, stage 2. 7. Dehydration. 8. Hypertension. 9. Chronic migraines. 10. Hypothyroidism. 11. Gastroesophageal reflux disease. 12. Hyponatremia. 13. Elevated inflammatory markers. PLAN: Cont IV Zosyn Continue low-dose aspirin. Resume Plavix tonight (ok with GI to restart) Continue all other home medications as below Continue Florastor Pain control Review of Systems - Medications/Allergies Allergies/Adverse Reactions: Allergies Allergy/AdvReac Type Severity Reaction Status Date / Time Cephalosporins Allergy Verified 10/26/18 12:37 latex Allergy Verified 10/26/18 12:37 natural rubber Allergy Uncoded 10/26/18 12:37 Medications: Current Medications Acetaminophen (Tylenol) 650 mg PO Q4H PRN PRN Reason: Headache/Fever/Mild Pain (1-3) Last Admin: 10/28/18 06:27 Dose: 650 mg Alprazolam (Xanax) 0.5 mg PO BID [facility] Last Admin: 10/28/18 20:08 Dose: 0.5 mg Amitriptyline HCl (Elavil) 25 mg PO [facility] Last Admin: 10/28/18 20:08 Dose: 25 mg Aspirin (Ecotrin) 81 mg PO HS [facility] Last Admin: 10/28/18 20:09 Dose: 81 mg Atorvastatin Calcium (Lipitor) 20 mg PO [facility] Last Admin: 10/28/18 20:09 Dose: 20 mg Baclofen (Lioresal) 10 mg PO DAILY PRN PRN Reason: Muscle Spasm Bupropion [facility] ([facility] Xl) [facility] Admin: 10/28/18 11:11 Dose: 150 mg Calcium Carbonate (Tums) 1,000 mg PO Q4H PRN PRN Reason: Heartburn or Indigestion Cholecalciferol (Vitamin D3) 5,000 units PO DAILY [facility] Last Admin: 10/28/18 09:26 Dose: 5,000 units Clopidogrel Bisulfate (Plavix) 75 mg PO [facility] Last Admin: 10/28/18 20:09 Dose: 75 mg Dicyclomine HCl (Bentyl) 10 mg PO QID PRN PRN Reason: GI spasm Last Admin: 10/28/18 20:12 Dose: 10 mg Escitalopram Oxalate (Lexapro) [facility] Last Admin: 10/28/18 09:26 Dose: 20 mg Gabapentin (Neurontin) 300 mg PO TID PRN PRN Reason: Pain Piperacillin Sod/Tazobactam (Sod 3.375 gm/ Sodium Chloride) 100 mls @ 200 mls/ hr IVPB 0400,1000,1600,2200 [facility] Last Admin: 10/28/18 22:04 Dose: 100 mls Potassium Chloride/Sodium Chloride (Ns 0.9% W/ 20 Meq Kcl) 1,000 ml in 1,000 mls @ 125 mls/hr IV .Q8H [facility] Last Admin: 10/28/18 22:08 Dose: 1,000 mls Levothyroxine Sodium (Synthroid) 75 mcg PO MWF@0600 [facility] Last Admin: 10/27/18 06:03 Dose: 75 mcg Levothyroxine Sodium (Synthroid) 50 mcg PO SuTuThSa@0600 [facility] Last Admin: 10/28/18 06:25 Dose: 50 mcg Loperamide HCl (Imodium) 2 mg PO PRN PRN PRN Reason: Diarrhea/Loose Stools Last Admin: 10/28/18 22:07 Dose: 2 mg Metoprolol Succinate (Toprol Xl) 25 mg PO QAM [facility] Last Admin: 10/28/18 09:26 Dose: 25 mg Morphine Sulfate (Morphine) 2 mg SLOW IVP Q4H PRN PRN Reason: Pain Stop: 10/30/18 14:05 Last Admin: 10/28/18 12:56 Dose: 2 mg Ondansetron HCl (Zofran Odt) 4 mg PO Q6H PRN PRN Reason: Nausea/Vomiting Pantoprazole Sodium (Protonix) 40 mg PO DAILY [facility] Last Admin: 10/28/18 09:26 Dose: 40 mg Saccharomyces Boulardii (Florastor) 250 mg PO DAILY [facility] Last Admin: 10/28/18 09:26 Dose: 250 mg Sodium Chloride (Flush - Normal Saline) 10 ml IVF Q12HR [facility] Last Admin: 10/28/18 22:06 Dose: 10 ml Sodium Chloride (Flush - Normal Saline) 10 ml IVF PRN PRN PRN Reason: Saline Flush
[2018-10-29] MEDS: Loperamide HCl 2 MG CAP PO PRN (01:38)
[2018-10-29] MEDS: Morphine 4 MG/ML VIAL SLOW IVP PRN ×4 (01:44→23:05)
[2018-10-29] MEDS: Piperacillin/Tazobactam 3.375 GM in Sodium Chloride 0.9% 100 ML IVPB SCH ×4 (03:38→21:22)
[2018-10-29 06:17] LABS: #Eosinphils 0.1 thou/uL (0.0-0.7); #Lymphocytes 1.3 thou/uL (1.20-3.40); #Monocytes 0.5 thou/uL (0.11-0.59); #Neutrophils 2.7 thou/uL (1.40-6.50); %Basophils 0.5 % (0.0-1.0); %Eosinophils 2.3 % (0.0-10.0); %Lymphocytes 28.8 % (21.0-51.0); %Neutrophils 57.4 % (42.0-75.0); Mean Corpuscular HGB CONC 32.3 g/dL (32.0-36.0); Mean Corpuscular Hemoglobin 32.1 pg (27.0-31.0); Mean Corpuscular Volume 99.4 fL (78.0-98.0); Mean Platelet Volume 7.8 fL (7.4-10.4); Platelet Count 121 thou/uL (130-400); RBC Distribution Width 12.5 % (11.5-14.5); White Blood Cell (WBC) Count 4.7 thou/uL (4.8-10.8)
[2018-10-29] MEDS: Levothyroxine Sodium 75 MCG TAB PO SCH (06:24)
[2018-10-29 06:39] LABS: ALT (SGPT) 17 U/L (8-55); AST (SGOT) 20 U/L (5-34); Albumin 2.5 g/dL (3.5-5.0); Alkaline Phosphatase 85 U/L (40-150); Anion Gap 8 mmol/L (10-20); BUN (Urea Nitrogen) Less than 4 mg/dL (9.8-20.1); Bilirubin, Total 0.3 mg/dL (0.2-1.2); Calc. Creatinine Clearance 112 mL/min (70-130); Calcium 7.7 mg/dL (7.8-10.44); Carbon Dioxide 23 mmol/L (22-29); Chloride 109 mmol/L (98-107); Estimated GFR-MDRD Greater than 90; Glucose 99 mg/dL (70-105); Protein, Total 4.5 g/dL (6.0-8.3); Sodium 136 mmol/L (136-145)
[2018-10-29] MEDS: Saccharomyces boulardii 250 MG CAP PO SCH (08:53)
[2018-10-29] MEDS: ALPRAZolam 0.5 MG TAB PO SCH ×2 (08:54→19:52)
[2018-10-29] MEDS: Bupropion 150 MG XL TAB PO SCH (08:54)
[2018-10-29] MEDS: Escitalopram Oxalate 20 mg Tablet PO SCH (08:55)
[2018-10-29] MEDS: NS 0.9% w/ 20 MEQ KCL 1,000 ML/1,000 ML BAG IV SCH ×3 (08:56→21:26)
--- NOTE | 2018-10-29 14:06 | PRG ---
DATE OF SERVICE: 10/29/2018 SUBJECTIVE: The patient is reporting much less pain, but when they tried to advance her to full liquids, gave her a lot of nausea. She is passing gas and bowel movements. OBJECTIVE: VITAL SIGNS: Temperature 97.7, pulse 78, and blood pressure 111/74. GENERAL: She looks less lethargic. She looks better. LABORATORY DATA: White count 4.7, H and H of 10 and 30, and platelet count of 121. Electrolytes are good. ASSESSMENT: Infectious colitis. PLAN: Continue supportive therapy. Job ID: [id number]
[2018-10-29] MEDS ORDERED: guaiFENesin ER 600 MG TAB PO SCH (15:00)
--- NOTE | 2018-10-29 15:15 | PRG ---
DATE OF SERVICE: 10/29/2018 SUBJECTIVE: A 58-year-old female was admitted 3 days ago with colitis. She has currently been seen by GI and General Surgery. She denies any hematochezia. Over the last 24 hours, she has intractable cough, which is essentially nonproductive. No fever or chills reported. She is tolerating clear liquid diet. Abdominal pain is improving. REVIEW OF SYSTEMS: No chest pain, palpitations, lightheadedness, dizziness, syncope, or focal deficit. CURRENT MEDICATIONS: Reviewed. The patient is on IV Zosyn along with IV fluids and other home medications. PHYSICAL EXAMINATION: VITAL SIGNS: Temperature 97.7, pulse 78, respirations 16, blood pressure 111/74, and O2 saturation 95% on room air. GENERAL: A 58-year-old female in no apparent distress. LUNGS: Showed scattered rhonchi at bases. No wheezing. HEART: S1 and S2 present. Regular. ABDOMEN: Soft, mild right-sided tenderness. No rebound or guarding. EXTREMITIES: No edema or calf tenderness. NEUROLOGY: Grossly nonfocal. LABORATORY FINDINGS: WBC 4.7 with hemoglobin 10, hematocrit 30.8 with platelet 121. Chemistries showed sodium 136, potassium 4, creatinine 0.61, albumin 2.5. Stool workup essentially negative except for positive Shiga toxin. Blood culture negative. Stool for Clostridium difficile was negative. IMPRESSION: 1. Acute ischemic colitis. 2. Worsening cough of 24 hours' duration, rule out pneumonia. 3. Swelling of the appendix on the CT. 4. Paroxysmal atrial fibrillation, status post Watchman device. 5. Hematochezia, improving. 6. Hypomagnesemia, replaced. 7. Dehydration. 8. Chronic kidney disease, stage 2. 9. Hypertension. 10. Hypothyroidism. 11. Chronic migraines. 12. Gastroesophageal reflux disease. 13. Elevated inflammatory markers. 14. Hyponatremia. 15. Moderate protein calorie malnutrition. 16. Anemia, probably chronic. 17. Cephalosporin allergy. PLAN: IV Zosyn will be continued. We will reduce IV fluid to 75. We will get a chest x-ray to rule out pneumonia. We will also recheck labs in a.m. Add Mucinex. The patient was advised to ambulate. We will continue other medications. Plan was discussed with the patient. She stated understanding. Job ID: [id number]
--- NOTE | 2018-10-29 15:56 | PRG ---
DATE OF SERVICE: 10/29/2018 SUBJECTIVE: The patient looks and feels much better today. She said she has no vomiting, occasional nausea only. She is having frequent loose bowels without blood. PHYSICAL EXAMINATION: VITAL SIGNS: Temperature is 97.7, blood pressure 111/74, and pulse is 78. GENERAL: She is alert, conversant, in no distress. HEENT: Anicteric sclerae. Oropharynx clear. CV: Shows normal S1 and S2. Regular rate and rhythm. CHEST: Shows a breath sounds. ABDOMEN: Protuberant, less tender, still [id number] tenderness on the right side. She has active bowel sounds. No tympany. EXTREMITIES: Show no edema. LABORATORY DATA: WBCs 4.7, hemoglobin 10.0, and platelet count of 121. Electrolytes within normal range, creatinine 0.61. ASSESSMENT: Right-sided ischemic colitis, clinically improving with much less pain and resolution of hematochezia. Blood count remained stable. There is no fever or leukocytosis and remains with benign abdominal exam. RECOMMENDATIONS: 1. We will advance to full liquid. 2. If the patient continues to improve, can be discharged home tomorrow without antibiotics. 3. Dr. Fleming to cover GI service. Job ID: [id number]
--- NOTE | 2018-10-29 17:11 | RAD ---
XR Chest Pa Lat STANDARD HISTORY: Shortness of breath and cough COMPARISON: None. FINDINGS: Heart size is within normal limits there are bibasilar lung changes seen consistent with at electasis versus infiltrate slight blunting to the costophrenic angles and posterior sulci this could indicate small effusions. Interstitial markings are slightly increased. A watchman type device is noted. IMPRESSION: Slightly increased interstitial lung markings this could indicate an element of edema but these changes are more prominent in the lung bases and would be suggestive of bibasilar atelectasis or infiltrate with possible small pleural effusions versus pleural thickening.
[2018-10-29] MEDS: Amitriptyline HCl 25 MG TAB PO SCH (19:52)
[2018-10-29] MEDS: Aspirin 81 mg Enteric Coated Tablet PO SCH (19:52)
[2018-10-29] MEDS: Atorvastatin Calcium 20 MG TAB PO SCH (19:52)
[2018-10-29] MEDS: Clopidogrel Bisulfate 75 MG TAB PO SCH (19:53)
[2018-10-29] MEDS: guaiFENesin ER 600 MG TAB PO SCH (19:53)
[2018-10-29] MEDS ORDERED: guaiFENesin/Codeine Phosphate 200 mg/20 mg 10 ml UD Cup PO SCH (21:00)
[2018-10-29] MEDS ORDERED: guaiFENesin/Codeine Phosphate 200 mg/20 mg 10 ml UD Cup PO PRN (21:34)
[2018-10-29] MEDS: HYDROcodone/Acetaminophen 5/325 mg Tablet PO PRN (23:13)
[2018-10-30] MEDS: Piperacillin/Tazobactam 3.375 GM in Sodium Chloride 0.9% 100 ML IVPB SCH ×2 (05:03→10:02)
[2018-10-30] MEDS: Levothyroxine Sodium 50 MCG TAB PO SCH (05:07)
[2018-10-30] MEDS: HYDROcodone/Acetaminophen 5/325 mg Tablet PO PRN (06:12)
[2018-10-30 07:01] LABS: #Eosinphils 0.1 thou/uL (0.0-0.7); #Lymphocytes 0.9 thou/uL (1.20-3.40); #Monocytes 0.4 thou/uL (0.11-0.59); #Neutrophils 2.2 thou/uL (1.40-6.50); %Basophils 0.7 % (0.0-1.0); %Eosinophils 3.2 % (0.0-10.0); %Monocytes 10.9 % (0.0-10.0); %Neutrophils 61.2 % (42.0-75.0); Hemoglobin 10.2 g/dL (12.0-16.0); Mean Corpuscular HGB CONC 32.5 g/dL (32.0-36.0); Mean Corpuscular Hemoglobin 31.9 pg (27.0-31.0); Mean Corpuscular Volume 98.3 fL (78.0-98.0); Mean Platelet Volume 7.3 fL (7.4-10.4); Platelet Count 140 thou/uL (130-400); RBC Distribution Width 12.5 % (11.5-14.5); Red Blood Cell (RBC) Count 3.21 mill/uL (4.20-5.40); White Blood Cell (WBC) Count 3.6 thou/uL (4.8-10.8)
[2018-10-30 07:20] LABS: ALT (SGPT) 17 U/L (8-55); AST (SGOT) 20 U/L (5-34); Albumin 2.7 g/dL (3.5-5.0); Alkaline Phosphatase 97 U/L (40-150); Anion Gap 7 mmol/L (10-20); BUN (Urea Nitrogen) Less than 4 mg/dL (9.8-20.1); Bilirubin, Total 0.4 mg/dL (0.2-1.2); Calc. Creatinine Clearance 114 mL/min (70-130); Calcium 8.1 mg/dL (7.8-10.44); Carbon Dioxide 25 mmol/L (22-29); Chloride 109 mmol/L (98-107); Estimated GFR-MDRD Greater than 90; Globulin 2.1 g/dL (2.4-3.5); Glucose 96 mg/dL (70-105); Magnesium 1.5 mg/dL (1.6-2.6); Potassium 3.8 mmol/L (3.5-5.1); Protein, Total 4.8 g/dL (6.0-8.3); Sodium 137 mmol/L (136-145)
[2018-10-30] MEDS ORDERED: Magnesium Sulfate 2 GM in Sodium Chloride 0.9% 100 ML IVPB SCH (08:15)
[2018-10-30] MEDS: Escitalopram Oxalate 20 mg Tablet PO SCH (09:44)
[2018-10-30] MEDS: Saccharomyces boulardii 250 MG CAP PO SCH (09:44)
[2018-10-30] MEDS: ALPRAZolam 0.5 MG TAB PO SCH (09:44)
[2018-10-30] MEDS: guaiFENesin ER 600 MG TAB PO SCH (09:45)
[2018-10-30] MEDS: Bupropion 150 MG XL TAB PO SCH (09:45)
--- NOTE | 2018-10-30 11:10 | PRG ---
DATE OF SERVICE: 10/30/2018 SUBJECTIVE: The patient is feeling much better. She is tolerating diet. Nausea has gone. Still has some cough. Chest x-ray showed atelectasis. OBJECTIVE: VITAL SIGNS: Temperature 98.2, pulse 91, and blood pressure 97/62. GENERAL: She is awake, alert, looks good. ABDOMEN: Soft, little tender on the right side. ASSESSMENT: Doing well. PLAN: Continue therapy. Job ID: [id number]
[2018-10-30 11:38] VITALS: TEMP 98
--- NOTE | 2018-10-30 12:31 | DIS ---
DATE OF ADMISSION: 10/26/2018 DATE OF DISCHARGE: 10/30/2018 DISCHARGE DISPOSITION: Home. DISCHARGE FOLLOWUP: 1. Follow up with primary care physician, Dr. Kaylee Sofia, in 1 week. 2. Follow up with Dr. Lima in 2 weeks. DISCHARGE CONDITION: The patient was seen and examined on the day of discharge. Denies any new complaints. No chest pain, shortness of breath, palpitations, nausea, or vomiting reported. She tolerated clear liquid diet yesterday. She was advanced to a full liquid diet last night. DISCHARGE MEDICATIONS: Same as admission medications. INPATIENT PEACE OFFICER: 1. General Surgery, Dr. Thomas. 2. Gastroenterology, Dr. Lima. BRIEF HOSPITAL COURSE: The patient is a 58-year-old female with paroxysmal atrial fibrillation, status post Watchman device, GERD, hypertension, and hypothyroidism, presented to the emergency room with abdominal discomfort. CT scan of the abdomen and pelvis showed marked inflammatory change involving the colon from the level of the rectum through the proximal transverse colon along with swelling of the appendix. The patient was monitored on the medical floor. She was started on IV Zosyn along with clear liquid diet and IV fluids. Her abdominal pain has significantly improved. Plavix was held for 1 day due to self-limited hematochezia. She did not have any more episodes of rectal bleeding. Her workup was consistent with acute ischemic colitis. IV antibiotics will be discontinued at discharge. Stool workup was essentially negative except for positive E. coli Shiga toxin 2. This may be false positive per Gastroenterology. Blood cultures were negative. She will be discharged later today if she tolerates full liquid diet per Gastroenterology. She was advised to return to emergency room if she develops any new symptoms. FINAL DIAGNOSES: 1. Acute ischemic colitis. 2. Intermittent cough of last 24 hours' duration. Chest x-ray was done yesterday that showed increased interstitial marking. It could be atelectasis versus edema from IV fluids. The patient was advised to seek medical attention if she develops any new fever. 3. Swelling of the appendix on the CT abdomen. 4. Paroxysmal atrial fibrillation, status post Watchman device. 5. Hematochezia, resolved. 6. Hypomagnesemia. She will receive magnesium prior to discharge. 7. Dehydration. 8. Chronic kidney disease, stage 2. 9. Hypertension. 10. Hypothyroidism. 11. Chronic migraines. 12. Gastroesophageal reflux disease. 13. Hyponatremia. 14. Moderate protein-calorie malnutrition from dehydration/poor oral intake. 15. Chronic anemia. 16. Cephalosporin allergy. 17. Elevated inflammatory markers. PLAN: Plan was discussed with the patient and the family at the bedside. They stated understanding. Job ID: [id number]
[2018-10-30 14:15] VITALS: BP 114/77
== END 2018-10-30 14:23 | disposition home or self-care (01) | DRG 394 ==
LOC: SCSER 06:30 → ERHOLD 09:14 → T4-B 12:22
PROVIDERS: ADMIT Internal Medicine; ATTEND Internal Medicine
DX: K55.039 Acute (reversible) ischemia of large intestine, extent unspecified (principal); K92.1 Melena; E87.1 Hypo-osmolality and hyponatremia; E44.0 Moderate protein-calorie malnutrition; J98.11 Atelectasis; I12.9 Hypertensive chronic kidney disease with stage 1 through stage 4 chronic kidney disease, or unspecified chronic kidney disease; N18.2 Chronic kidney disease, stage 2 (mild); I48.0 Paroxysmal atrial fibrillation; E83.42 Hypomagnesemia; E86.0 Dehydration; E03.9 Hypothyroidism, unspecified; G43.909 Migraine, unspecified, not intractable, without status migrainosus; B96.20 Unspecified Escherichia coli [E. coli] as the cause of diseases classified elsewhere; K21.9 Gastro-esophageal reflux disease without esophagitis; D63.1 Anemia in chronic kidney disease; Z79.01 Long term (current) use of anticoagulants; Z88.8 Allergy status to other drugs, medicaments and biological substances; Z68.25 Body mass index [BMI] 25.0-25.9, adult; Z91.040 Latex allergy status; Z90.710 Acquired absence of both cervix and uterus; Z88.0 Allergy status to penicillin
CPT/HCPCS: 36415; 71046; 74177; 80053; 81003; 81015; 83605; 83630; 83690; 83735; 84484; 85025; 86140; 87040; 87045; 87046; 87086; 87324; 87328; 87329; 87449; 87899; 93005; 96361; 96365; 96372; 96375; 96376; C9113; J0500; J2270; J2405; J2543; J3010; J3475; J3480; J3490; Q0162; Q9967

== ENCOUNTER 2018-11-02 11:17 | Inpatient (IN) | payer BC ==
[2018-11-02] MEDS ORDERED: Morphine 4 MG/ML VIAL ONE ×3 (11:46→13:39)
[2018-11-02] MEDS ORDERED: Ondansetron PF 4 MG/2 ML Vial ONE ×2 (11:47→12:49)
[2018-11-02 12:13] LABS: Lactic Acid 3.4 mmol/L (0.5-2.2)
[2018-11-02 12:27] LABS: ALT (SGPT) 27 U/L (8-55); AST (SGOT) 82 U/L (5-34); Albumin 2.9 g/dL (3.5-5.0); Alkaline Phosphatase 121 U/L (40-150); Anion Gap 17 mmol/L (10-20); BUN (Urea Nitrogen) 26 mg/dL (9.8-20.1); Bilirubin, Total 2.4 mg/dL (0.2-1.2); Calc. Creatinine Clearance 0 mL/min (70-130); Calcium 9.1 mg/dL (7.8-10.44); Carbon Dioxide 22 mmol/L (22-29); Chloride 103 mmol/L (98-107); Estimated GFR-MDRD 20; Globulin 3.2 g/dL (2.4-3.5); Glucose 113 mg/dL (70-105); Potassium 5.7 mmol/L (3.5-5.1); Protein, Total 6.1 g/dL (6.0-8.3); Sodium 136 mmol/L (136-145)
[2018-11-02 12:34] LABS: #Eosinphils 0.1 thou/uL (0.0-0.7); #Lymphocytes 1.4 thou/uL (1.20-3.40); #Monocytes 0.5 thou/uL (0.11-0.59); %Basophils 0.7 % (0.0-1.0); %Lymphocytes 19.6 % (21.0-51.0); %Monocytes 7.2 % (0.0-10.0); %Neutrophils 71.5 % (42.0-75.0); Hemoglobin 10.4 g/dL (12.0-16.0); MDiff Complete? YES; Mean Corpuscular HGB CONC 33.4 g/dL (32.0-36.0); Mean Corpuscular Hemoglobin 31.8 pg (27.0-31.0); Mean Corpuscular Volume 95.3 fL (78.0-98.0); Mean Platelet Volume 10.7 fL (7.4-10.4); Platelet Count 55 thou/uL (130-400); Platelet Morphology Comment Appears Decreased; Polychromasia SLIGHT = 2-3 cells (100X) (0-2/hpf); RBC Distribution Width 13.8 % (11.5-14.5); Red Blood Cell (RBC) Count 3.28 mill/uL (4.20-5.40); Schistocytes SLIGHT = 2-5 cells (100X) (0-1/hpf); White Blood Cell (WBC) Count 6.9 thou/uL (4.8-10.8)
[2018-11-02] MEDS ORDERED: ALPRAZolam 0.5 MG TAB ONE (13:43)
[2018-11-02] MEDS ORDERED: Ondansetron PF 4 MG/2 ML Vial IVP PRN ×2 (15:57→19:38)
[2018-11-02] MEDS ORDERED: Ondansetron ODT 4 MG TAB SL PRN (15:57)
[2018-11-02] MEDS ORDERED: Sodium Chloride 0.9% 1,000 ML IV SCH (15:57)
[2018-11-02 16:06] VITALS: BMI 25.2
[2018-11-02] MEDS: Morphine 4 MG/ML VIAL SLOW IVP PRN ×2 (17:03→21:12)
--- NOTE | 2018-11-02 19:04 | CON ---
DATE OF CONSULTATION: HISTORY OF PRESENT ILLNESS: Ms. Dominguez is a 58-year-old white female, who was admitted with a chief complaint of diarrhea. She has a previous diagnosis of ischemic colitis. The patient has also been having some nausea. We are now being consulted for acute kidney injury. She is being empirically volume depleted due to the presumptive diagnosis of acute kidney injury from volume depletion. REVIEW OF SYSTEMS: Positive for generalized malaise. Positive for hoarseness. No chest pain. No shortness of breath. Diffuse myalgia. Positive for diarrhea. No gross hematuria. No dysuria. No urinary frequency. ? of hematochezia. No headache. No diplopia. Decreased appetite. Decreased energy level. No productive cough. No fever or chills. HOME MEDICATIONS: Include, 1. Protonix 40 mg daily. 2. Metoprolol succinate, dose unknown, one tab q.a.m. 3. Magnesium chloride 64 mg p.o. b.i.d. 4. Levothyroxine 1 tab daily. 5. Gabapentin 1 tab p.o. b.i.d. 6. Lexapro 1 tab q.a.m. 7. Clopidogrel 75 mg daily. 8. Vitamin D3 of 5000 international units daily. 9. Bupropion 1 tab q.a.m. 10. Baclofen 1 tab daily. 11. Lipitor 20 mg q.h.s. 12. Aspirin 81 mg tab once a day. 13. Amitriptyline 25 mg q.h.s. 14. Xanax 1 tab b.i.d. PAST MEDICAL HISTORY: 1. History of ischemic colitis. 2. Migraine. 3. GERD. 4. Chronic atrial fibrillation. 5. Depression. 6. Anxiety. 7. Hypothyroidism. 8. Hyperlipidemia. 9. Diffuse myalgia. 10. Hypertension. PAST SURGICAL HISTORY: Status post Watchman procedure, status post upper and lower GI endoscopy, status post right inguinal hernia repair, status post left shoulder arthroscopy, status post hysterectomy-robotic, status post cardiac cath, status post ablation therapy. SOCIAL HISTORY: The patient lives in [place]. . Currently, on medical leave. She is a PACU nurse. Education, college graduate/nursing school. No history of smoking. No blood transfusion. Alcohol rarely. Two children. ALLERGIES: CEPHALOSPORIN. TRAUMA: None. IMMUNIZATION: Not Up-to-date. HOSPITALIZATIONS: Please see past medical history. FAMILY HISTORY: No family history of ESRD. PHYSICAL EXAMINATION: VITAL SIGNS: Blood pressure is 114/72, heart rate 104, respiratory rate 18, temperature 98.9, and pulse ox 93% on room air. GENERAL: Awake, alert, comfortable, not in overt distress. SKIN: Decreased turgor. HEENT: She has a pinkish conjunctivae. Anicteric sclerae. No neck mass. No carotid bruits. No JVD. CHEST: No deformities. LUNGS: Clear breath sounds. HEART: Tachycardic. No gallops. No rubs. ABDOMEN: Globular, soft, nontender. No masses. Positive bowel sounds. Negative for epigastric bruits. GROIN: No inguinal lymphadenopathy. No femoral artery bruits. GENITALIA: Deferred. EXTREMITIES: No edema. No deformities. NEUROLOGICAL: Moving all extremities. No tremors. No asterixis. Oriented to 3 spheres. LABORATORY DATA: Laboratories of November 02, 2018; white count 6.9, hemoglobin 10.4. Sodium 136, potassium 5.7, chloride 103, carbon dioxide 22, BUN 26, creatinine 2.53, glucose 113, calcium 9.1, AST 82, ALT 27, albumin is 2.9, lipase 26, lactic acid is 1.0. On October 30, 2018, BUN was 4, creatinine 0.6. On October 26, 2018, urinalysis shows no protein, no red cells, no white cells. November 02, 2018, urinalysis currently pending. ASSESSMENT AND PLAN: Acute kidney injury, consider hemodynamically-mediated renal dysfunction. The patient has history of decreased p.o. intake, has some nausea and diarrhea. In addition, she was noted to be on the hypotensive side. Agree with empiric volume repletion. There is no indication for any dialytic intervention with this patient. Will be reviewing urinalysis to determine if she may have any other possible cause of the acute kidney injury such as an acute tubular necrosis or acute glomerulonephritis. Urine protein and urine creatinine will be done with this patient as well as a urine sodium. Furthermore, renal ultrasound has been ordered. For the moment, agree with current management, continue empiric volume repletion. If this is all hemodynamically mediated dysfunction, she should improve overnight with the renal function. Thank you for the consult. We will continue to follow. Job ID: [id number] [facility]
--- NOTE | 2018-11-02 19:10 | RAD ---
ABDOMINAL SURVEY WITH UPRIGHT CHEST AND TWO VIEW ABDOMEN: 11/02/18 HISTORY: Abdominal distention. FINDINGS: Upright chest shows bilateral pleural effusions and bibasilar atelectasis and/or infiltrates. Supine and upright views of abdomen show mild gaseous distention of the colon. Small bowel gas patter n is unremarkable. No evidence of free intraperitoneal air. A linear calcific density overlies the lo wer pole of the right kidney measuring approximately 1.0 cm. There is a tiny calcific density seen in the left abdomen to the left of the L4 vertebra measuring 5 mm. IMPRESSION: 1. Chest film shows bilateral pleural effusions and bibasilar atelectasis and/or infiltrates wit h mild vascular engorgement. 2. Bowel gas pattern is nonspecific. No evidence of small bowel obstruction. POS: [facility]
[2018-11-02] MEDS ORDERED: Phenergan/Codeine 10-6.25mg/5ml UDCUP PO PRN (19:38)
[2018-11-02] MEDS ORDERED: Benzonatate 100 MG CAP PO PRN (19:38)
[2018-11-02] MEDS ORDERED: hydrALAZINE 20 MG/ML VIAL SLOW IVP PRN (19:38)
[2018-11-02] MEDS ORDERED: Ondansetron ODT 4 MG TAB PO PRN (19:38)
[2018-11-02] MEDS ORDERED: Acetaminophen 500 MG TAB PO PRN (19:38)
[2018-11-02] MEDS: Sodium Chloride 0.9% 1,000 ML IV SCH (20:48)
[2018-11-02] MEDS: ALPRAZolam 0.5 MG TAB PO SCH (20:49)
[2018-11-02] MEDS: guaiFENesin/DM ER PO SCH (20:49)
[2018-11-02] MEDS: Magnesium Chloride 64 MG TAB PO SCH (20:49)
[2018-11-02] MEDS ORDERED: Amitriptyline HCl 25 MG TAB PO SCH (21:00)
[2018-11-02] MEDS ORDERED: GABAPENTIN PO SCH (21:00)
[2018-11-02 22:11] LABS: Bilirubin Negative (Negative); Blood, Urine Large (Negative); Glucose, Urine (Dipstick) Negative (Negative); Leukocyte Negative (Negative); Nitrite Negative (Negative); Protein, Urine (Dipstick) > or equal to 300 mg/dL (Neg-Trace); Urobilinogen 0.2 mg/dL (Less than 2)
[2018-11-02 22:13] LABS: Bacteria/HPF Rare-Few HPF (None Seen); Clarity Hazy (Clear); Squamous Epithelial 0-3 HPF (0-3); WBC/HPF 0-3 HPF (0-3)
--- NOTE | 2018-11-02 22:19 | HP ---
PRIMARY CARE PROVIDER: Dr. Kaylee Sofia. COMPLAINT: Generalized weakness and abdominal pain. HISTORY OF PRESENT ILLNESS: This is a 58-year-old female, who was recently admitted to [facility] between 10/26/2018 to 10/30/2018 for a suspected ischemic colitis. The patient was treated symptomatically and supportively during the hospital stay and evaluated by the GI and General Surgery Service. The patient received IV fluids, antiemetics as well as pain control during hospital course. The patient was also noted with mild hematochezia, likely due to ischemic colitis. Stool cultures were unrevealing and patient was discontinued on empiric antibiotic therapy. The patient was discharged home and states she continued to have decreased energy, poor oral intake; however, declined persistent diarrhea. The patient had associated abdominal cramps and nausea and was unable to take in significant amount of fluid. The patient denied any documented fever, but complained of worsening fatigue and general malaise. The patient returned to the emergency room on 11/02/2018 with initial emergency room evaluation showing evidence of acute kidney injury. The patient received intravenous normal saline x2 L in addition to morphine sulfate, Zofran and Xanax. The patient was transferred to the medical floor for further evaluation. PAST MEDICAL HISTORY: 1. Ischemic colitis 10/26/2018 through 10/30/2018. 2. Hypertension. 3. Gastroesophageal reflux disease. 4. Paroxysmal atrial fibrillation, status post Watchman device. 5. Hypothyroidism. 6. Chronic kidney disease, stage 2. 7. Chronic migraines. 8. Moderate protein calorie malnutrition. 9. Chronic anemia. 10. Depression. PAST SURGICAL HISTORY: 1. Status post colonoscopy. 2. Status post EGD. 3. Status post left shoulder repair. 4. Status post cardiac ablation secondary to atrial fibrillation. 5. Status post Watchman device placement. 6. Status post hysterectomy. 7. Status post bilateral bunionectomy. CURRENT MEDICATIONS: 1. Xanax 0.5 mg p.o. b.i.d. 2. Amitriptyline 25 mg p.o. at bedtime. 3. Enteric-coated aspirin 81 mg p.o. daily. 4. Lipitor 20 mg p.o. daily. 5. Baclofen 10 mg p.o. daily. 6. Bupropion 150 mg p.o. daily. 7. Vitamin D3 5000 units p.o. daily. 8. Plavix 75 mg p.o. daily. 9. Lexapro 20 mg p.o. daily. 10. Gabapentin 600 mg p.o. b.i.d. 11. Levothyroxine 75 mcg p.o. daily. 12. Toprol-XL 25 mg p.o. daily. 13. Protonix 40 mg p.o. daily. ALLERGIES: CEPHALOSPORINS AND LATEX. FAMILY HISTORY: Father with pancreatic cancer. Mother with renal and bladder cancer. SOCIAL HISTORY: The patient is . Post anesthesia care unit recovery nurse. No tobacco or illicit drug use. Social alcohol use. REVIEW OF SYSTEMS: CONSTITUTIONAL: Negative for weight loss or gain, ability to conduct usual activities. SKIN: Negative for rash, itching. EYES: Negative for double vision, pain. ENT/MOUTH: Negative for nose bleeding, neck stiffness, pain, tenderness. CARDIOVASCULAR: Negative for palpitations, dyspnea on exertion, orthopnea. RESPIRATORY: Negative for shortness of breath, wheezing, cough, hemoptysis, fever or night sweats. GASTROINTESTINAL: Negative for poor appetite, abdominal pain, heartburn, nausea, vomiting, constipation, or diarrhea. GENITOURINARY: Negative for urgency, frequency, dysuria, nocturia. MUSCULOSKELETAL: Negative for pain, swelling. NEUROLOGIC/PSYCHIATRIC: Negative for anxiety, depression. ALLERGY/IMMUNOLOGIC: Negative for skin rash, bleeding tendency. Otherwise negative except as stated per HPI. PHYSICAL EXAMINATION: VITAL SIGNS: On admission, blood pressure 114/72, pulse 104, respiratory rate 18, temperature 98.9 degrees Fahrenheit, O2 saturation 93% on room air. GENERAL APPEARANCE: This is a 58-year-old female, alert and oriented x3, ill appearing, responsive to direct questions. HEENT: Pupils are equal, round, reactive to light and accommodation. Extraocular muscles are intact. No scleral icterus. No conjunctival injection. Nares patent. OP is clear. Oral mucosa is dry. NECK: Supple. No cervical adenopathy. No thyromegaly. No carotid bruits. No JVD appreciated. Cervical spine with full active and passive range of motion. No meningeal signs noted. CHEST: Diminished breath sounds in the bases bilaterally with occasional rhonchi. CARDIOVASCULAR EXAM: S1 and S2 with tachycardia. No murmur, rub, or gallop appreciated. ABDOMEN: Rounded, soft with mild tenderness to palpation diffusely. No rebound or guarding noted. Bowel sounds are positive in all 4 quadrants. EXTREMITIES: Warm and dry with fair turgor. No clubbing, cyanosis, or asymmetric edema appreciated. Pulses palpable distally at the dorsalis pedis, posterior tibial, and popliteal arteries bilaterally. Capillary refill less than 2 seconds. NEUROLOGIC: Cranial nerves 2 through 12 are grossly intact. No focal or lateralizing signs appreciated. PERTINENT LAB AND X-RAY FINDINGS: Sodium 136, potassium 5.7, chloride 103, CO2 of 22, BUN 26, creatinine 2.43. Previous creatinine 0.60 on 10/30/2018, estimated GFR of 20. Lactic acid level 3.4, calcium 9.1, total bilirubin 2.4, AST 82, ALT of 27, alkaline phosphatase 121, lipase 26. CBC showed a white blood cell count of 6.9, hemoglobin 10.4, hematocrit 31, platelet count 55, previously noted 140 on 10/30/2018. E. coli O157 on 11/02/2018 not performed. Acute abdominal series dated 11/02/2018, showed bilateral pleural effusions with bibasilar atelectasis. Nonspecific bowel gas pattern. EKG dated 11/02/2018, by my interpretation shows sinus mechanism with heart rates in the 90s. Attenuated R-waves noted in the precordial leads. Normal axis. No acute ST-T wave changes appreciated. ASSESSMENT/PLAN: 1. Acute kidney injury. The patient will be admitted to the medical floor. Suspect volume mediated due to dehydration. We will continue intravenous normal saline at 150 mL/hour. Encourage increased free water intake orally. Avoid nephrotoxic agents and limit contrast exposure. Repeat creatinine in the a.m. 2. Hyperkalemia. Secondarily to #1. Avoid potassium supplementation. Continue IV fluids as outlined in #1 and repeat potassium level in the a.m. 3. Severe dehydration. See #1 and #2 above. Continue IV fluids and monitor oral intake. 4. Lactic acidosis. Suspect secondarily to #1. Continue IV fluid management and monitor lactic acid trend. No current evidence to suggest acute infectious process. 5. Bilateral pleural effusions with atelectasis. Suspect secondarily to decreased activity level and influenza. Add incentive spirometry q.2 hours. Add DuoNeb q.4 hours. 6. Normocytic anemia. We will continue to monitor hemoglobin trend. No current evidence to suggest acute blood loss. Hold dual antiplatelet therapy. 7. Thrombocytopenia. Suspect iatrogenic in conjunction with current presentation. Hold anti-platelet therapy. Repeat platelet count in the a.m. 8. Prophylaxis. SCDs while in bed. Protonix 40 mg p.o. daily. CODE STATUS: 1. Full. 2. Surrogate medical decision maker is the patient's spouse. Job ID: [id number]
[2018-11-02 22:30] LABS: Creatinine, Urine 46.07 mg/dL (47-110)
--- NOTE | 2018-11-03 00:01 | CON ---
DATE OF CONSULTATION: 11/02/2018 REASON FOR CONSULTATION: Feeling bad, recent admission for ischemic colitis. 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 She was admitted on 10/26/2018, with diffuse abdominal cramping and bloating, and right-sided pain associated with diarrhea. CT at that time demonstrated inflammatory changes involving the right colon. She did have bloody stools that had resolved during that admission. Her clinical picture was consistent with ischemic colitis involving the right colon at that time. Stool studies performed during that admission showed positive shiga toxin, however, subsequent stool culture was negative for any E coli O157 . The patient at the time of discharge was feeling rather well. However, since getting home 4 days ago, she has had persistent nausea without much emesis. As a result, she has not been able to take in much fluid or any food. She notes her urine has become darker. Her abdomen is bloated with variable distention without any severe pain. She did not have the actual vomiting. At the same time, she became weaker and has had palpitation, difficulty walking. At the same time, she was short of breath with periodic cough which she has had for the last 2 weeks. She has not had any bowel movement over the last 4 days until this morning when she had one episode of loose stool with what appears to be dark old blood. On the ER evaluation today, she does have hyperkalemia with elevation in creatinine to 2.6 , which is well over her normal baseline. PAST MEDICAL HISTORY: 1. Paroxysmal atrial fibrillation, status post Watchman procedure. 2. Migraine headaches. 3. Undefined neurological disorder, characterized as ataxia, slurring speech, and memory impairment. She has seen 3 different neurologists and has had MRI and LP done. 4. Hypothyroidism. 5. GE reflux disease. 6. Status post hysterectomy. 7. Status post shoulder surgery. 8. Benign gastric polyp. ALLERGIES: CEPHALOSPORIN AND LATEX. MEDICATIONS: At home include: 1. Pantoprazole. 2. Metoprolol. 3. Magnesium chloride. 4. Levothyroxine. 5. Lexapro. 6. Plavix. 7. Bupropion. 8. Lipitor. 9. Aspirin. 10. Amitriptyline. 11. Alprazolam. SOCIAL HISTORY: The patient is . She has 2 children. Currently, lives with her . No tobacco or alcohol usage. She is a retired RN. FAMILY HISTORY: Pancreatic cancer in her father. Otherwise, negative for any other GI problem, liver disease, or GI malignancy. REVIEW OF SYSTEMS: A 10-point review of systems did not show any other pertinent positives or negatives. PHYSICAL EXAMINATION: VITAL SIGNS: Temperature is 98.9, blood pressure 114/72, pulse 104. GENERAL: She appears to be very weak, but in no severe distress. HEENT: Anicteric sclerae. Oropharynx is dry, but no lesions. NECK: Supple. No adenopathy or mass. CV: Normal S1 and S2. Regular rhythm. Mildly tachycardic. CHEST: Shows breath sounds. No adventitious sound. ABDOMEN: Slightly protuberant. Mildly distended, but soft. There is minimal tenderness on the right side to deep palpation. There is no guarding or rebound. She does have bowel sounds, but very hypoactive. EXTREMITIES: 1+ pretibial and pedal edema. LABORATORY DATA: WBC is 6.9, hemoglobin 10.4, platelet count of 55. Sodium 136 , potassium 5.7, chloride 103, CO2 22, creatinine 2.43. Lactic acid 3.4. Bilirubin 2.4, AST 82, ALT 27, lipase 26. ASSESSMENT: 1. Acute renal failure with a creatinine of 2.43, which is a marked increase from 0.6 three days ago. The etiology is likely from prerenal such as dehydration. However, her BUN and sodium are not markedly abnormal. Possibility of other etiology of renal failure exists. She was never confirmed to have Escherichia coli infection with a negative stool culture on the last admission. However, hemolytic uremic syndrome needs to be entertained given some schistocytes seen on her hemogram and her bilirubin and AST are mildly elevated and platelet count is low. 2. Likely ischemic colitis based on last admission presentation a week ago. Current abdominal exam is very benign with only mild distention, but no real tenderness. RECOMMENDATIONS: 1. We will obtain Renal consult to evaluate for any other etiology of her kidney injuries. 2. Repeat stool studies to include culture and C diff. 3. Continue with IV hydration. 4. We will obtain abdominal x-rays for now. 5. We will follow. Job ID: [id number] [facility]
[2018-11-03] MEDS: Sodium Chloride 0.9% 1,000 ML IV SCH (05:12)
[2018-11-03 05:32] VITALS: BP 113/73; TEMP 98.2
[2018-11-03] MEDS ORDERED: Levothyroxine Sodium 75 MCG TAB PO SCH (06:00)
[2018-11-03 06:58] LABS: ALT (SGPT) 25 U/L (8-55); AST (SGOT) 50 U/L (5-34); Albumin 2.4 g/dL (3.5-5.0); Alkaline Phosphatase 94 U/L (40-150); Anion Gap 10 mmol/L (10-20); BUN (Urea Nitrogen) 31 mg/dL (9.8-20.1); Bilirubin, Total 0.9 mg/dL (0.2-1.2); Calc. Creatinine Clearance 23 mL/min (70-130); Carbon Dioxide 23 mmol/L (22-29); Chloride 107 mmol/L (98-107); Estimated GFR-MDRD 16; Globulin 2.5 g/dL (2.4-3.5); Glucose 114 mg/dL (70-105); Potassium 3.4 mmol/L (3.5-5.1); Protein, Total 4.9 g/dL (6.0-8.3); Sodium 137 mmol/L (136-145)
[2018-11-03 07:27] LABS: Hemoglobin 8.2 g/dL (12.0-16.0); Mean Corpuscular HGB CONC 33.1 g/dL (32.0-36.0); Mean Corpuscular Hemoglobin 31.8 pg (27.0-31.0); Mean Corpuscular Volume 96.1 fL (78.0-98.0); Mean Platelet Volume 10.5 fL (7.4-10.4); Platelet Count 30 thou/uL (130-400); RBC Distribution Width 14.2 % (11.5-14.5); Red Blood Cell (RBC) Count 2.57 mill/uL (4.20-5.40)
--- NOTE | 2018-11-03 07:54 | ULT ---
US Renal Bilateral STANDARD: 11/03/2018 5:26 PM CLINICAL HISTORY: Chronic renal failure. STUDY: Renal ultrasound COMPARISON: None. FINDINGS: Right kidney: Echogenicity: Increased. Masses/cysts: None. Hydronephrosis: None. Calcifications: None. Length: 11.6 cm Left kidney: Echogenicity: Increased. Masses/cysts: None. Hydronephrosis: None. Calcifications: None. Length: 11.7 cm Limited visualization of the urinary bladder is unremarkable. There may be a small right pleural effu lucy. IMPRESSION: 1. Increased echogenicity of the kidneys is likely secondary to chronic medical renal disease 2. Small right pleural effusion
[2018-11-03 07:56] LABS: Band 13 % (5-11); Bite Cells SLIGHT = 2-5 cells (100X) (0-1/hpf); Eosinophils 1 % (0-10); Lymphocytes 15 % (21-51); MDiff Complete? YES; Monocytes 6 % (0-10); Neutrophil 65 % (42-75); Platelet Morphology Comment Appears Decreased; Polychromasia MODERATE = 3-4 cells (100X) (0-2/hpf); Schistocytes MODERATE= 6-15 cells (100X) (0-1/hpf)
[2018-11-03] MEDS ORDERED: Escitalopram Oxalate 20 mg Tablet PO SCH (09:00)
[2018-11-03] MEDS ORDERED: Baclofen 10 MG TAB PO SCH (09:00)
[2018-11-03] MEDS ORDERED: Bupropion 150 MG XL TAB PO SCH (09:00)
--- NOTE | 2018-11-03 09:08 | PRG ---
DATE OF SERVICE: 11/03/2018 SUBJECTIVE: Ms. Dominguez is a 58-year-old white female, who was admitted for an acute kidney injury. She had a history of low blood pressure as well as nausea and diarrhea. A previous workup by her GI doctor suggested she may have HUS. I did review the urinalysis today and she had significant proteinuria and hematuria. Renal function remains unimproved even with volume repletion. The possibility of acute glomerulonephritis remains with this patient. I have decided to do more serologies. I did discuss with the patient today and with her about the possibility of doing a renal biopsy. No new complaints. The patient still has generalized malaise and decreased appetite. OBJECTIVE: VITAL SIGNS: Blood pressure is 113/73, heart rate is 99, respiratory rate is 16, temperature is 98.2, and pulse ox is 92%. GENERAL: Noted to be awake, supine, lethargic, not in distress. SKIN: Adequate turgor. HEENT: Slightly pale conjunctivae. Anicteric sclerae. NECK: No neck mass. No carotid bruits. No JVD. CHEST: No deformities. LUNGS: Clear breath sounds. HEART: Normal sinus rhythm. No murmur. No gallops. No rubs. ABDOMEN: Globular, soft, and nontender. No masses. EXTREMITIES: No edema. No deformities. MEDICATIONS: Medications of November 03, 2018, reviewed. LABORATORY DATA: Laboratories of November 03, 2018; white count 6, hemoglobin 8.2, and hematocrit 24.7. Sodium 137, potassium 3.4, chloride 107, carbon dioxide 23, BUN 31, creatinine 2.99, and glucose 114. AST is 50, ALT is 25, and albumin is 2.4. Renal ultrasound shows increased echogenicity. No obstruction. Urinalysis of November 02, 2018; protein is greater than 300, rbc 11 to 20, and wbc 0 to 3. Urine sodium is 100, urine creatinine is 46, and urine protein is 1317. ASSESSMENT AND PLAN: 1. Acute kidney injury - with an active urine sediment, consider the possibility of an acute glomerulonephritis. Hemolytic uremic syndrome is also a possibility with this patient. We will order some more serologies. I have ordered an JUAN to rule out for lupus, ANCA to rule out vasculitis. I have also ordered a urine and serum protein immunoelectrophoresis with this patient. The concern is a hemolytic uremic syndrome due to the anemia, as well as thrombocytopenia. Case discussed with her reading instructor, Dr. Lima. For the moment, continue supportive care. There is no indication for any dialytic intervention. Review of CBC shows evidence of hemolysis - We consulted hematology for further evaluation - HUS vs TTP Job ID: [id number] [facility]
[2018-11-03] MEDS: ALPRAZolam 0.5 MG TAB PO SCH (09:25)
[2018-11-03] MEDS: Magnesium Chloride 64 MG TAB PO SCH (09:26)
[2018-11-03] MEDS: guaiFENesin/DM ER PO SCH (09:26)
[2018-11-03 12:54] LABS: Fibrinogen 417 mg/dL (253-463); INR-International Normal Ratio 1.1; Prothrombin Time 14.2 SEC (12.0-14.7)
[2018-11-03 12:55] LABS: PTT 34.3 SEC (22.9-36.1)
[2018-11-03 13:16] LABS: FSP-Qualitative Normal (Normal)
[2018-11-03 17:03] LABS: ANA Symphony (Qualitative) Negative (Negative); ANA Symphony (Quantitative) 0.2 Ratio (< 0.7 Negative); dsDNA IgG Antibody 1.3 IU/mL (<10 Negative)
--- NOTE | 2018-11-03 19:59 | CON ---
DATE OF CONSULTATION: REASON FOR CONSULTATION: Thrombocytopenia, anemia, acute renal failure. HISTORY OF PRESENT ILLNESS: A 58-year-old female with recent admission for suspected ischemic colitis on October 30, 2018, presenting back to the hospital with weakness and diffuse abdominal pain and cramps. The patient denied any ongoing diarrhea upon readmission to the hospital, but did begin having some more diarrhea today and denies any blood. She denies any fevers. Prior admission, she received IV fluids, antiemetics, and stool cultures at that time were unrevealing. She has currently received a couple more units of IV fluids on morphine, Zofran, and Xanax. On admission to the hospital, hemoglobin was 10.4 and platelets were 55, which was decreased from 140 at discharge. Today, hemoglobin is 8.2 and platelets are 30. Blood smear shows moderate schistocytes. On discharge, her creatinine was 0.6 and was 2.43 on admission and after fluid this currently worsened to 2.99. Her total bilirubin on admission was 2.4 and LDH is 1367. Her coags are normal and the fibrin split products are normal as well. Her urine shows large protein greater than 300 and large blood. Repeat stool culture on November 02 was positive for Campylobacter antigen and negative for E. coli. Abdomen series x-rays showed no evidence of bowel obstruction. Chest x-ray on prior admission on October 29 showed slightly increased interstitial lung markings. REVIEW OF SYSTEMS: Ten-point review of systems negative except as per HPI. PAST MEDICAL HISTORY: Ischemic colitis, hypertension, GERD, paroxysmal atrial fibrillation status post Watchman, hypothyroidism, depression. PAST SURGICAL HISTORY: Colonoscopy, EGD, left shoulder repair, cardiac ablation, Watchman, hysterectomy, and bilateral bunionectomy. CURRENT MEDICATIONS: Reviewed. ALLERGIES: CEPHALOSPORINS AND LATEX. FAMILY HISTORY: Father with pancreatic cancer. Mother with renal and bladder cancer. SOCIAL HISTORY: No tobacco use. Social alcohol. PHYSICAL EXAMINATION: VITAL SIGNS: Temperature 98.2, pulse 99, respirations 16, saturating 92% on room air, blood pressure 113/73. GENERAL APPEARANCE: The patient is lying in bed, in acute appears ill. HEENT: Normocephalic and atraumatic. NECK: Supple. CARDIOVASCULAR: S1 and S2 without murmurs, rubs, or gallops. RESPIRATIONS: Diminished breath sounds, but nonlabored. ABDOMEN: Diffuse mild tenderness, not distended. EXTREMITIES: No edema. NEUROLOGIC: Cranial nerves 2 through 12 grossly Intact. PSYCHIATRIC: Awake, alert, and oriented x3. However, it does appear to have some mild difficulty with short-term memory. LABORATORY DATA: White blood cell 6.0, hemoglobin 8.2, platelets 30. Monitor schistocytes. PT, INR, PTT, fibrinogen, and fibrin split products are normal. Sodium 137, potassium 3.4, BUN 31, creatinine 2.99, glucose 114, total bilirubin 2.4 down to 0.9, AST 82 down to 50, LDH 1367. Urine greater than 300 protein, large blood. ASSESSMENT AND PLAN: A 58-year-old female with recent diagnosis of ischemic colitis and stool showing Campylobacter antigen with microangiopathic hemolytic anemia and thrombocytopenia with acute kidney injury. The patient's symptoms are suggestive of thrombocytopenic purpura/hemolytic uremic syndrome picture. With the Campylobacter antigen positive, I suspect she more likely has hemolytic uremic syndrome, but given her symptoms and laboratory findings should be ruled out for thrombocytopenic purpura. [id number] has been sent and I have ordered 2 units of FFP to be transfused now while we transfer her to [place] to initiate plasma exchange. I discussed the treatment of the disorders and prognosis with the patient and her . I have discussed with Dr. Bruno and the physicians in [place] as well. Job ID: [id number]
--- NOTE | 2018-11-03 20:29 | DIS ---
DATE OF ADMISSION: 11/02/2018 DATE OF DISCHARGE: 11/03/2018 DISCHARGE DIAGNOSES: 1. 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 2. Acute kidney injury secondary to #1. 3. Hyperkalemia, improved. 4. Acute normocytic anemia secondary to hemolysis and #1. 5. Dehydration, resolving. 6. Lactic acidosis, improved. 7. Bilateral pleural effusions with atelectasis. 8. Campylobacter antigen positive, status post recent colitis. CONSULTATIONS: 1. Dr. Reginald Lima with GI Service. 2. Dr. Amadou Orta with Nephrology Service. 3. Dr. Guo with Hematology Service. PERTINENT LABORATORY AND X-RAY FINDINGS: Potassium ranged between 3.4 to 5.7. Creatinine ranged between 2.43 to 2.99. Estimated GFR ranged between 16 to 20. Lactic acid level ranged between 1.0 to 3.4. Total bilirubin ranged between 0.9 to 2.4. AST ranged between 50 to 82, ALT ranged between 25 to 27. Lactate dehydrogenase 1367. Lipase 26. CBC showed a hemoglobin ranged between 8.2 to 10.4, MCV 96. Schistocytes noted on differential analysis. PT 14.2, INR 1.1, PTT 34.3, fibrinogen 417, fibrin degradation products normal. Urinalysis showed greater than 300 protein, large blood, 11 to 20 rbc's per high-power field. Urine random, total protein 1317, urine creatinine 46.07, urine sodium 100. C difficile antigen toxin dated 11/02/2018, negative. Stool culture dated 11/02/2018, showed normal enteric juan. Campylobacter antigen dated 11/02/2018, positive. Shigella toxin 1 and 2 negative. E coli O157 not performed. Stool lactoferrin dated 11/02/2018, negative. Bilateral renal ultrasound dated 11/03/2018, showed changes consistent with chronic kidney disease. Small right pleural effusion noted. HOSPITAL COURSE: The patient was initially admitted on 11/02/2018, with complaints of generalized weakness and abdominal pain. The patient was noted with acute kidney injury with elevated creatinine of 2.6, above baseline values of 0.6 on 10/30/2018. The patient was also noted with multiple metabolic derangements including hyperkalemia and acute anemia with initial concerns for potential TTP versus HUS. The patient received aggressive IV fluid hydration and avoidance of anti-platelet therapy. The patient was evaluated by the Nephrology Service, recommending continuation of IV fluid hydration. The patient also received antiemetics and general supportive management. The patient was also evaluated by the Hematology Service concerning for TTP versus HUS. The patient received 2 units of fresh frozen plasma and was recommended to transfer to higher level of care for urgent plasmapheresis. I have examined the patient at time of discharge and discussed followup and disposition instructions. The patient and verbalized understanding and in agreement and ready for transfer to [facility] on 11/03/2018. DISCHARGE MEDICATIONS: 1. Alprazolam 0.5 mg p.o. b.i.d. 2. Amitriptyline 25 mg p.o. at bedtime. 3. Lipitor 20 mg p.o. daily. 4. Baclofen 10 mg p.o. daily. 5. Bupropion XL 150 mg p.o. q.a.m. 6. Vitamin D3 5000 units p.o. daily. 7. Lexapro 20 mg p.o. daily. 8. Gabapentin 600 mg p.o. b.i.d. 9. Levothyroxine 75 mcg p.o. daily. 10. Metoprolol succinate 25 mg p.o. daily. 11. Protonix 40 mg p.o. daily. 12. DuoNeb 3 mL nebulized q.4 hours p.r.n. 13. Slow magnesium 64 mg p.o. b.i.d. FOLLOWUP: The patient may follow up with the Hematology Service at [facility] in [place], [place] on 11/03/2018. The patient may follow up with Dr. Dony Guo after discharge with Hematology Service. The patient will follow up with Dr. Reginald Lima with GI Service. The patient will follow up with Dr. Kaylee Sofia, her primary care provider upon discharge. CONDITION ON DISCHARGE: Guarded. ACTIVITY: Ad-philomena. DIET: Regular. CODE STATUS: Full. DISPOSITION: Transfer to [facility] in [place], [place] on 11/03/2018. TIME SPENT: Total time preparing and coordinating discharge, 38 minutes. Job ID: [id number]
[2018-11-05 15:10] LABS: IgA - Total IgA (Sendout) 198 mg/dL (87-352); Immunoglobulin - G (Sendout) 626 mg/dL (700-1600); Immunoglobulin - M (Sendout) 104 mg/dL (26-217)
[2018-11-05 17:08] LABS: Cytoplasmic (C-ANCA) <1:20 titer (Neg:<1:20); Myeloperoxidase AutoAbs <9.0 U/mL (0.0-9.0); Perinuclear (P-ANCA) <1:20 titer (Neg:<1:20); Proteinase-3 AutoAbs Less than 3.5 U/mL (0.0-3.5)
== END 2018-11-03 15:28 | disposition short-term general hospital (02) | DRG 545 ==
LOC: ERS 11:17 → T4-A 12:55
PROVIDERS: ADMIT Family Medicine; ATTEND Family Medicine
PROC: 30233L1 Transfusion of Nonautologous Fresh Plasma into Peripheral Vein, Percutaneous Approach (ICD-10-PCS; principal; 2018-11-02)
PROC: 30233K1 Transfusion of Nonautologous Frozen Plasma into Peripheral Vein, Percutaneous Approach (ICD-10-PCS; 2018-11-02)
DX: M31.1 Thrombotic microangiopathy (principal); D59.3 Hemolytic-uremic syndrome; N17.9 Acute kidney failure, unspecified; E87.2 Acidosis; J90 Pleural effusion, not elsewhere classified; J98.11 Atelectasis; E44.0 Moderate protein-calorie malnutrition; G89.29 Other chronic pain; M54.9 Dorsalgia, unspecified; E03.9 Hypothyroidism, unspecified; K21.9 Gastro-esophageal reflux disease without esophagitis; F32.9 Major depressive disorder, single episode, unspecified; I12.9 Hypertensive chronic kidney disease with stage 1 through stage 4 chronic kidney disease, or unspecified chronic kidney disease; N18.2 Chronic kidney disease, stage 2 (mild); I48.0 Paroxysmal atrial fibrillation; G43.809 Other migraine, not intractable, without status migrainosus; E87.5 Hyperkalemia; E86.0 Dehydration; F41.9 Anxiety disorder, unspecified; D63.8 Anemia in other chronic diseases classified elsewhere; E78.5 Hyperlipidemia, unspecified; D63.1 Anemia in chronic kidney disease; Z79.899 Other long term (current) drug therapy; Z91.040 Latex allergy status; Z88.1 Allergy status to other antibiotic agents; Z87.19 Personal history of other diseases of the digestive system; Z79.82 Long term (current) use of aspirin; Z79.02 Long term (current) use of antithrombotics/antiplatelets; Z68.25 Body mass index [BMI] 25.0-25.9, adult
CPT/HCPCS: 36415; 36430; 74022; 76770; 80053; 81001; 82570; 83010; 83520; 83605; 83615; 83630; 83690; 84156; 84300; 84484; 85007; 85025; 85027; 85060; 85362; 85384; 85610; 85730; 86038; 86225; 86256; 86334; 86850; 86900; 86901; 87045; 87046; 87324; 87449; 87899; 93005; 94640; 96361; 96374; 96375; 96376; A4353; J2270; J2405; J7620; P9059

== ENCOUNTER 2022-03-12 08:50 | Day surgery (SDC) | payer BC ==
[2022-03-11 14:01] VITALS: BMI 23.3
[2022-03-12] MEDS ORDERED: PROPOFOL 200 MG/20 ML VIAL ONE (10:40)
== END 2022-03-12 12:29 | disposition home or self-care (01) ==
LOC: SDC 08:50
PROVIDERS: ATTEND Internal Medicine Gastroenterology
PROC: 0DJD8ZZ Inspection of Lower Intestinal Tract, Via Natural or Artificial Opening Endoscopic (ICD-10-PCS; principal; 2022-03-12)
PROC: 0D757ZZ Dilation of Esophagus, Via Natural or Artificial Opening (ICD-10-PCS; principal; 2022-03-12)
PROC: 0DJ08ZZ Inspection of Upper Intestinal Tract, Via Natural or Artificial Opening Endoscopic (ICD-10-PCS; principal; 2022-03-12)
DX: Z12.11 Encounter for screening for malignant neoplasm of colon (principal); R13.10 Dysphagia, unspecified; K57.30 Diverticulosis of large intestine without perforation or abscess without bleeding; D17.79 Benign lipomatous neoplasm of other sites; K21.9 Gastro-esophageal reflux disease without esophagitis; I48.91 Unspecified atrial fibrillation; E07.9 Disorder of thyroid, unspecified; Z79.82 Long term (current) use of aspirin; Z79.890 Hormone replacement therapy; Z79.899 Other long term (current) drug therapy; Z88.1 Allergy status to other antibiotic agents; Z91.040 Latex allergy status
CPT/HCPCS: J2704

== ENCOUNTER 2022-09-23 16:35 | Outpatient (CLI) | payer BC ==
[2022-09-23 17:50] LABS: #Eosinphils 0.1 10x3/uL (0.0-0.5); #Monocytes 0.4 10x3/uL (0.0-1.1); #Neutrophils 2.3 10x3/uL (1.5-8.4); %Basophils 0.7 % (0.0-2.0); %Eosinophils 2.5 % (0.0-6.0); %Lymphocytes 37.3 % (18.0-47.0); %Monocytes 7.8 % (0.0-10.0); %Neutrophils 51.3 % (40.0-75.0); Hemoglobin 11.4 g/dL (12.0-15.5); Mean Corpuscular HGB CONC 31.8 g/dL (32.0-36.0); Mean Corpuscular Hemoglobin 29.5 pg (27.0-33.0); Mean Corpuscular Volume 92.5 fl (81.6-98.3); Mean Platelet Volume 9.6 fl (7.4-10.4); Platelet Count 235 10x3/uL (150-450); RBC Distribution Width 12.9 % (11.5-14.5); Red Blood Cell (RBC) Count 3.87 10x6/uL (3.90-5.03); White Blood Cell (WBC) Count 4.5 10x3/uL (3.5-10.5)
[2022-09-23 18:07] LABS: ALT (SGPT) 13 U/L (8-55); AST (SGOT) 23 U/L (5-34); Albumin 4.1 g/dL (3.4-4.8); Alkaline Phosphatase 38 U/L (40-110); Anion Gap 11 mmol/L (10-20); BUN (Urea Nitrogen) 22 mg/dL (9.8-20.1); Bilirubin, Total 0.3 mg/dL (0.2-1.2); Calc. Creatinine Clearance 0 mL/min (70-130); Calcium 9.6 mg/dL (7.8-10.44); Carbon Dioxide 28 mmol/L (23-31); Chloride 104 mmol/L (98-107); Estimated GFR 61; Globulin 2.4 g/dL (2.4-3.5); Glucose 90 mg/dL (80-115); Potassium 4.7 mmol/L (3.5-5.1); Protein, Total 6.5 g/dL (5.8-8.1); Sodium 138 mmol/L (136-145)
== END 2022-09-23 16:36 | disposition home or self-care (01) ==
LOC: LABBT 16:35
PROVIDERS: ATTEND Surgery
DX: Z01.812 Encounter for preprocedural laboratory examination (principal); N63.10 Unspecified lump in the right breast, unspecified quadrant
CPT/HCPCS: 80053; 85025; 93005; 93010

== ENCOUNTER 2022-09-24 09:15 | Day surgery (SDC) | payer BC ==
[2022-09-23 17:07] VITALS: BMI 22.2
[2022-09-24] MEDS ORDERED: Fentanyl 250 MCG/5 ML VIAL ONE (11:10)
[2022-09-24] MEDS ORDERED: fentaNYL 50 mcg/mL 1 mL Vial ONE (11:30)
[2022-09-24] MEDS ORDERED: Midazolam HCl 2 mg/2 ml Vial ONE (11:41)
[2022-09-24] MEDS ORDERED: Bupivacaine HCl 0.5%/Epinephrine 1:200,000/PF 30 ml Vial ONE (11:49)
[2022-09-24] MEDS ORDERED: Levofloxacin 500 mg/D5W 100 ml Premix Bag ONE (11:57)
[2022-09-24] MEDS ORDERED: PROPOFOL 200 MG/20 ML VIAL ONE (12:12)
[2022-09-24] MEDS ORDERED: Lidocaine 1% PF 5 ML VIAL ONE (12:12)
[2022-09-24] MEDS ORDERED: Dexamethasone 20 MG/5 ML VIAL ONE (12:12)
[2022-09-24] MEDS ORDERED: Ondansetron PF 4 MG/2 ML Vial ONE (12:12)
== END 2022-09-24 13:40 | disposition home or self-care (01) ==
LOC: SDC 09:15
PROVIDERS: ATTEND Surgery
PROC: 0HTT0ZZ Resection of Right Breast, Open Approach (ICD-10-PCS; principal; 2022-09-24)
DX: N62 Hypertrophy of breast (principal); N60.31 Fibrosclerosis of right breast; N64.1 Fat necrosis of breast; N60.81 Other benign mammary dysplasias of right breast; I48.91 Unspecified atrial fibrillation; K21.9 Gastro-esophageal reflux disease without esophagitis; Z79.899 Other long term (current) drug therapy
CPT/HCPCS: 88307; J1100; J1956; J2250; J2405; J2704; J3010

== ENCOUNTER 2023-01-27 17:00 | Outpatient (CLI) | payer BC | END 2023-01-27 17:01 | disposition home or self-care (01) | LOC: SLEEPLAB 17:00 | PROVIDERS: ATTEND Internal Medicine Critical Care Medicine | DX: G47.33 Obstructive sleep apnea (adult) (pediatric) (principal) | CPT/HCPCS: 95800 ==

== ENCOUNTER 2023-07-09 09:54 | Outpatient (CLI) | payer BC | END 2023-07-09 09:55 | disposition home or self-care (01) | LOC: BICMAMMO 09:54 | PROVIDERS: ATTEND Surgery | DX: N63.10 Unspecified lump in the right breast, unspecified quadrant (principal) | CPT/HCPCS: 77066; G0279 ==